=== PATIENT | female | born 1995 | race Caucasian/White ===

== ENCOUNTER 2016-07-25 20:40 | Inpatient (IN) | payer MEDICAID, OTHER ==
[~2016-07-25] VITALS: Ht 167.6 cm; Wt 64.0 kg
[~2016-07-25 20:40] MED LIST: IBUP-232 PO
[2016-07-25 20:42] VITALS: BP 110/73; PULSE 122; RESP 16; TEMP 97.6; O2SAT 99
[2016-07-25 21:40] VITALS: BP 116/59; PULSE 102; RESP 16; O2SAT 99
[2016-07-25 22:10] VITALS: RESP 16; O2SAT 99
[2016-07-25 22:17] LABS: AUTOMATED NEUTROPHIL # 25.8 TH/MM3 (1.8-7.7); BASOPHIL % 0.1 % (0.0-2.0); HEMATOCRIT 45.9 % (35.0-46.0); LYMPH % 3.4 % (9.0-44.0); MEAN CORPUSCULAR HEMOGLOBIN 29.3 PG (27.0-34.0); MEAN CORPUSCULAR HGB CONC 32.9 % (32.0-36.0); MONO % 3.8 % (0.0-8.0); NEUT % 92.7 % (16.0-70.0); PLATELET COUNT 216 TH/MM3 (150-450); RED BLOOD COUNT 5.16 MIL/MM3 (4.00-5.30); RED CELL DISTRIBUTION WIDTH 14.1 % (11.6-17.2); WHITE BLOOD COUNT 27.8 TH/MM3 (4.0-11.0)
[2016-07-25 22:24] LABS: BACTERIA, URINE OCC /hpf; BLOOD, URINE TRACE (NEG); COMMENT (UR) CULTURE INDICATED; CULTURE IF INDICATED CULTURE INDICATED; GLUCOSE,URINE NEG (NEG); HEMO FLAGS AUTO DIFF; KETONE, URINE NEG (NEG); MUCUS URINE MANY /lpf (OCC); NITRITE,URINE NEG (NEG); SQUAMOUS EPITHELIAL CELL URINE 4 /hpf (0-5); URINE COLOR YELLOW (YELLW/STRAW)
[2016-07-25 22:43] LABS: ALT (GPT) 49 U/L (9-42); ANION GAP 10 MEQ/L (5-15); AST (GOT) 19 U/L (16-38); BICARBONATE 29.3 MEQ/L (21.0-32.0); BLOOD UREA NITROGEN 17 MG/DL (7-18); CHLORIDE 98 MEQ/L (98-107); GLOMERULAR FILTRATION RATE 47 ML/MIN (>89); POTASSIUM 3.8 MEQ/L (3.5-5.1); SODIUM (NA) 137 MEQ/L (136-145)
[2016-07-25 22:45] LABS: ALKALINE PHOSPHATASE 89 U/L (45-117)
[2016-07-25 22:50] LABS: BANDS 8 % (0-6); NEUTROPHIL # MANUAL DIFF 25.6 TH/MM3 (1.8-7.7); POLYS (SEG NEUTROPHILS) 84 % (16-70); WBC DIFF SAMPLE 100
[2016-07-25 22:51] LABS: PLATELET ESTIMATE SMEAR NORMAL (NORMAL); PLATELET MORPHOLOGY NORMAL (NORMAL); SCAN/DIFF FINAL DIFF MANUAL
--- NOTE | 2016-07-25 22:54 | PD ---
HPI Chief Complaint: Abdominal Pain Time Seen by Provider: 22:26 Travel History International Travel<30 days: No Contact w/Intl Traveler<30days: No Traveled to known affect area: No History of Present Illness HPI 21-year-old female complains of abdominal pain. Patient states that the pain started yesterday. Patient states the pain being constant pain cramping pain and sharp pain diffuse over the abdomen. Patient states the pain is worse over the lower abdomen. Patient states that the pains has been intermittent. Patient denies any nausea vomiting diarrhea. Patient denies any dysuria or frequency. Patient denies any vaginal discharge or bleeding. Patient denies any back pain. Patient denies any fever chills. On a scale of 1-10 the pain is an 8. PFSH Past Medical History Autoimmune Disease: No Weight (Kg): 3 Cancer: No Cardiovascular Problems: No Developmental Delay: No Diabetes: No Diminished Hearing: No Genitourinary: No Headaches: No Musculoskeletal: No Psychiatric: Yes Reproductive: No Integumentary: Yes (HX OF [facility] FOR 3 DAYS IN MAY 2009) Immunizations Current: Yes Migraines: No Seizures: No Thyroid Disease: No Ulcer: No ?: Unknown LMP: 07/17/16 : 0 Past Surgical History Appendectomy: No Section: No Cholecystectomy: No Other Surgery: Yes (drained staph infection--plastic surg for dog bite) Social History Alcohol Use: Yes Tobacco Use: No Substance Use: No Allergies-Medications (Allergen,Severity, Reaction): Coded Allergies: No Known Allergies (Verified , 07/25/16) Reported Meds & Prescriptions Reported Meds & Active Scripts Active No Active Prescriptions or Reported Medications Review of Systems General / Constitutional: No: Fever Eyes: No: Visual changes HENT: No: Headaches Cardiovascular: No: Chest Pain or Discomfort Respiratory: No: Shortness of Breath Gastrointestinal: Positive: Abdominal Pain Genitourinary: No: Dysuria Musculoskeletal: No: Pain Skin: No Rash Neurologic: No: Weakness Psychiatric: No: Depression Endocrine: No: Polydipsia Hematologic/Lymphatic: No: Easy Bruising Physical Exam Narrative GENERAL: Well-nourished, well-developed patient. SKIN: Focused skin assessment warm/dry. HEAD: Normocephalic. EYES: No scleral icterus. No injection or drainage. NECK: Supple, trachea midline. No JVD or lymphadenopathy. CARDIOVASCULAR: Regular rate and rhythm without murmurs, gallops, or rubs. RESPIRATORY: Breath sounds equal bilaterally. No accessory muscle use. GASTROINTESTINAL: Abdomen soft, nondistended. Patient has moderate tenderness on palpation abdomen especially lower abdomen, no rebound tenderness. Patient has guarding. No mass. MUSCULOSKELETAL: No cyanosis, or edema. BACK: Nontender without obvious deformity. No CVA tenderness. INTERFACE DESIGNER exam: Patient has small amount of yellowish greenish discharge in the vaginal vault. Positive cervical motion tenderness. Uterus is nonenlarged with moderate tenderness on palpation. No adnexal masses tenderness. Data Data Last Documented VS Vital Signs Date Time Temp Pulse Resp B/P Pulse Ox O2 Delivery O2 Flow Rate FiO2 07/25/16 22:10 16 99 Room Air 07/25/16 21:40 102 116/59 07/25/16 20:42 97.6 Orders Complete Blood Count With Diff (07/25/16 21:47) Comprehensive Metabolic Panel (07/25/16 21:47) Urinalysis - C+S If Indicated (07/25/16 21:47) Ed Urine Pregnancytest Poc (07/25/16 21:47) Iv Access Insert/Monitor (07/25/16 21:47) Oxygen Administration (07/25/16 21:47) Oximetry (07/25/16 21:47) Lipase (07/25/16 21:47) Urine Culture (07/25/16 22:04) Gc And Chlamydia Pcr (07/25/16 22:36) Wet Prep Profile (07/25/16 22:36) Ct Abd/Pel W Iv Contrast(Rout) (07/25/16 22:36) Sodium Chlor 0.9% 1000 Ml Inj (Ns 1000 M (07/25/16 23:00) Ceftriaxone Inj (Rocephin Inj) (07/25/16 23:00) Iohexol 350 Inj (Omnipaque 350 Inj) (07/26/16 00:48) Labs Laboratory Tests Test 07/25/16 07/25/16 22:04 22:50 White Blood Count 27.8 TH/MM3 Red Blood Count 5.16 MIL/MM3 Hemoglobin 15.1 GM/DL Hematocrit 45.9 % Mean Corpuscular Volume 89.0 FL Mean Corpuscular Hemoglobin 29.3 PG Mean Corpuscular Hemoglobin 32.9 % Concent Red Cell Distribution Width 14.1 % Platelet Count 216 TH/MM3 Mean Platelet Volume 8.0 FL Neutrophils (%) (Auto) 92.7 % Lymphocytes (%) (Auto) 3.4 % Monocytes (%) (Auto) 3.8 % Eosinophils (%) (Auto) 0.0 % Basophils (%) (Auto) 0.1 % Neutrophils # (Auto) 25.8 TH/MM3 Lymphocytes # (Auto) 1.0 TH/MM3 Monocytes # (Auto) 1.1 TH/MM3 Eosinophils # (Auto) 0.0 TH/MM3 Basophils # (Auto) 0.0 TH/MM3 CBC Comment AUTO DIFF Differential Total Cells 100 Counted Neutrophils % (Manual) 84 % Band Neutrophils % 8 % Lymphocytes % 7 % Monocytes % 1 % Neutrophils # (Manual) 25.6 TH/MM3 Differential Comment FINAL DIFF MANUAL Platelet Estimate NORMAL Platelet Morphology Comment NORMAL Red Cell Morphology Comment NORMAL Urine Color YELLOW Urine Turbidity HAZY Urine pH 6.0 Urine Specific [place] 1.017 Urine Protein 100 mg/dL Urine Glucose (UA) NEG mg/dL Urine Ketones NEG mg/dL Urine Occult Blood TRACE Urine Nitrite NEG Urine Bilirubin NEG Urine Urobilinogen LESS THAN 2.0 MG/DL Urine Leukocyte Esterase MOD Urine RBC 1 /hpf Urine WBC 19 /hpf Urine Squamous Epithelial 4 /hpf Cells Urine Bacteria OCC /hpf Urine Mucus MANY /lpf Microscopic Urinalysis Comment CULTURE INDICATED Sodium Level 137 MEQ/L Potassium Level 3.8 MEQ/L Chloride Level 98 MEQ/L Carbon Dioxide Level 29.3 MEQ/L Anion Gap 10 MEQ/L Blood Urea Nitrogen 17 MG/DL Creatinine 1.43 MG/DL Estimat Glomerular Filtration 47 ML/MIN Rate Random Glucose 101 MG/DL Calcium Level 9.2 MG/DL Total Bilirubin 1.0 MG/DL Aspartate Amino Transf 19 U/L (AST/SGOT) Alanine Aminotransferase 49 U/L (ALT/SGPT) Alkaline Phosphatase 89 U/L Total Protein 8.6 GM/DL Albumin 3.8 GM/DL Lipase 56 U/L Clue Cells (Wet Prep) PRESENT Vaginal Trichomonas (Wet Prep) NONE SEEN Vaginal Yeast (Wet Prep) NONE SEEN MDM Medical Decision Making Medical Screen Exam Complete: Yes Emergency Medical Condition: Yes Interpretation(s) 12:55 AM. CBC WBC 27.8. 84 neutrophil. 8 bands. Creatinine 1.43. Wet prep positive for clue cells. Differential Diagnosis Differential diagnosis including gastritis, PUD, pancreatitis, cholecystitis, colitis, UTI, pyelonephritis, nephrolithiasis, appendicitis, PID, cervicitis. Narrative Course 21-year-old female with abdominal pain. Normal saline solution 1 25 cc an hour. Rocephin 1 g IV. Scripts No Active Prescriptions or Reported Meds Campos Fregoso MD Jul 25, 2016 22:54
[2016-07-25] MEDS ORDERED: cefTRIAXone INJ 1,000 MG in SODIUM CHLORIDE 0.9% INJ 100 ML IV ONE (23:00)
[2016-07-25] MEDS ORDERED: SODIUM CHLOR 0.9% 1000 ML INJ 1,000 ML IV SCH (23:00)
[2016-07-26] MEDS ORDERED: IOHEXOL 350 MG/ML 10 ML VIAL (for RAD DIAG) IV ONE (00:48)
--- NOTE | 2016-07-26 01:33 | RADRPT ---
EXAM DATE/TIME: 07/26/2016 00:44 [facility] COMPARISON: No previous studies available for comparison. INDICATIONS : Abdominal pain with nausea. IV CONTRAST: 80 cc Omnipaque 350 (iohexol) IV ORAL CONTRAST: No oral contrast ingested. RADIATION DOSE: 9.96 CTDIvol (mGy) MEDICAL HISTORY : None SURGICAL HISTORY : None. ENCOUNTER: Initial ACUITY: 1 day PAIN SCALE: 7/10 LOCATION: abdomen TECHNIQUE: Volumetric scanning of the abdomen and pelvis was performed. Using automated exposure control and ad justment of the mA and/or kV according to patient size, radiation dose was kept as low as reasonably achievable to obtain optimal diagnostic quality images. FINDINGS: Examination of the lung bases demonstrates no abnormality. No pleural fluid is identified. No pulmona ry nodules are present. The liver and spleen are normal in size and no focal defects are identified. There is gallbladder wall thickening with a small air-containing stone. The pancreas demonstrates no evidence of mass and there is no dilatation of the pancreatic duct. There is small bowel dilatation i n a diffuse fashion to the terminal ileum with enhancement of the wall which may reflect enteritis. T his also involves the right colon. No free fluid is identified. No abnormally enlarged lymph nodes ar e identified. Examination of the pelvis demonstrates no evidence of free fluid or pelvic mass. No abnormally enlarg ed inguinal or retroperitoneal lymph nodes are present. The bladder is unremarkable. CONCLUSION: Cholelithiasis with mild gallbladder wall thickening Mild small bowel dilatation in a diffuse fashion which may reflect infectious enteritis. Curt Valle MD on July 26, 2016 at 1:27 Board Certified Radiologist. This report was verified electronically.
[2016-07-26 02:08] LABS: CHLAMYDIA PCR NOT DETECTED (NOT DETECT); NEISSERIA PCR DETECTED (NOT DETECT)
[2016-07-26] MEDS: SODIUM CHLOR 0.9% 1000 ML INJ 1,000 ML IV SCH ×3 (02:08→23:11)
--- NOTE | 2016-07-26 02:13 | PD ---
Physical Exam Date Seen by Provider: Jul 26, 2016 Time Seen by Provider: 02:09 Narrative GENERAL: This is a well-nourished, well-developed patient, in no apparent distress. SKIN: No rashes, ecchymoses or lesions. Warm and dry. HEAD: Atraumatic. Normocephalic. EYES: PERRL, EOMI, no discharge or injection. No scleral icterus. EARS: Clear NOSE: Nasal turbinates appear normal. THROAT: Mucosa pink and moist. Airway patent. NECK: Trachea midline. supple, moves head freely. LUNGS: Clear to auscultation. CV: Regular in rhythm. ABDOMEN: Soft, diffusely tender. Mild guarding but no rebound. No Gaines sign. EXT: No clubbing cyanosis or edema. Data Data Last Documented VS Vital Signs Date Time Temp Pulse Resp B/P Pulse Ox O2 Delivery O2 Flow Rate FiO2 07/25/16 22:10 16 99 Room Air 07/25/16 21:40 102 116/59 07/25/16 20:42 97.6 Orders Complete Blood Count With Diff (07/25/16 21:47) Comprehensive Metabolic Panel (07/25/16 21:47) Urinalysis - C+S If Indicated (07/25/16 21:47) Ed Urine Pregnancytest Poc (07/25/16 21:47) Iv Access Insert/Monitor (07/25/16 21:47) Oxygen Administration (07/25/16 21:47) Oximetry (07/25/16 21:47) Lipase (07/25/16 21:47) Urine Culture (07/25/16 22:04) Gc And Chlamydia Pcr (07/25/16 22:36) Wet Prep Profile (07/25/16 22:36) Ct Abd/Pel W Iv Contrast(Rout) (07/25/16 22:36) Sodium Chlor 0.9% 1000 Ml Inj (Ns 1000 M (07/25/16 23:00) Ceftriaxone Inj (Rocephin Inj) (07/25/16 23:00) Iohexol 350 Inj (Omnipaque 350 Inj) (07/26/16 00:48) Piperacil-Tazo 4.5 Gm Premix (Zosyn 4.5 (07/26/16 02:15) Admit Order (Ed Use Only) (07/26/16 02:08) Labs Laboratory Tests Test 07/25/16 07/25/16 22:04 22:50 White Blood Count 27.8 TH/MM3 Red Blood Count 5.16 MIL/MM3 Hemoglobin 15.1 GM/DL Hematocrit 45.9 % Mean Corpuscular Volume 89.0 FL Mean Corpuscular Hemoglobin 29.3 PG Mean Corpuscular Hemoglobin 32.9 % Concent Red Cell Distribution Width 14.1 % Platelet Count 216 TH/MM3 Mean Platelet Volume 8.0 FL Neutrophils (%) (Auto) 92.7 % Lymphocytes (%) (Auto) 3.4 % Monocytes (%) (Auto) 3.8 % Eosinophils (%) (Auto) 0.0 % Basophils (%) (Auto) 0.1 % Neutrophils # (Auto) 25.8 TH/MM3 Lymphocytes # (Auto) 1.0 TH/MM3 Monocytes # (Auto) 1.1 TH/MM3 Eosinophils # (Auto) 0.0 TH/MM3 Basophils # (Auto) 0.0 TH/MM3 CBC Comment AUTO DIFF Differential Total Cells 100 Counted Neutrophils % (Manual) 84 % Band Neutrophils % 8 % Lymphocytes % 7 % Monocytes % 1 % Neutrophils # (Manual) 25.6 TH/MM3 Differential Comment FINAL DIFF MANUAL Platelet Estimate NORMAL Platelet Morphology Comment NORMAL Red Cell Morphology Comment NORMAL Urine Color YELLOW Urine Turbidity HAZY Urine pH 6.0 Urine Specific [place] 1.017 Urine Protein 100 mg/dL Urine Glucose (UA) NEG mg/dL Urine Ketones NEG mg/dL Urine Occult Blood TRACE Urine Nitrite NEG Urine Bilirubin NEG Urine Urobilinogen LESS THAN 2.0 MG/DL Urine Leukocyte Esterase MOD Urine RBC 1 /hpf Urine WBC 19 /hpf Urine Squamous Epithelial 4 /hpf Cells Urine Bacteria OCC /hpf Urine Mucus MANY /lpf Microscopic Urinalysis Comment CULTURE INDICATED Sodium Level 137 MEQ/L Potassium Level 3.8 MEQ/L Chloride Level 98 MEQ/L Carbon Dioxide Level 29.3 MEQ/L Anion Gap 10 MEQ/L Blood Urea Nitrogen 17 MG/DL Creatinine 1.43 MG/DL Estimat Glomerular Filtration 47 ML/MIN Rate Random Glucose 101 MG/DL Calcium Level 9.2 MG/DL Total Bilirubin 1.0 MG/DL Aspartate Amino Transf 19 U/L (AST/SGOT) Alanine Aminotransferase 49 U/L (ALT/SGPT) Alkaline Phosphatase 89 U/L Total Protein 8.6 GM/DL Albumin 3.8 GM/DL Lipase 56 U/L Clue Cells (Wet Prep) PRESENT Vaginal Trichomonas (Wet Prep) NONE SEEN Vaginal Yeast (Wet Prep) NONE SEEN Chlamydia trachomatis DNA NOT DETECTED (PCR) Neisseria gonorrhoeae DNA DETECTED (PCR) [facility] Medical Record Reviewed: Yes Supervised Visit with OCTAVIO: Yes Interpretation(s) CBC & BMP Diagram 07/25/16 22:04 Last 24 hours Impressions Abdomen/Pelvis CT 07/25/16 [id number] Signed Impressions: Service Date/Time: Tuesday, July 26, 2016 00:44 - CONCLUSION: Cholelithiasis with mild gallbladder wall thickening Mild small bowel dilatation in a diffuse fashion which may reflect infectious enteritis. Curt Valle MD Differential Diagnosis Differential diagnoses: UTI, pyelonephritis, enteritis, cholelithiasis cholecystitis, PID Narrative Course IV access is obtained. Patient given a liter bolus of saline. She is initially given 1 g Rocephin by the earlier provider. We've added in 4.5 g of Zosyn IV. Patient's CAT scan shows diffuse inflammatory changes in the small bowel consistent with infectious enteritis. She also has thickening of the gallbladder an isolated stone but no evidence of acute cholecystitis. The case has been discussed with Dr. THOMPSON who has agreed to admit this patient. Diagnosis Primary Impression: Abdominal pain Qualified Code: R10.84 - Generalized abdominal pain Additional Impression: Enteritis Admitting Information Admitting Physician Requests: Observation Scripts No Active Prescriptions or Reported Meds Condition: Ronan Vizcarra Jul 26, 2016 02:13
[2016-07-26] MEDS ORDERED: PIPERACIL-TAZO 4.5 GM PREMIX 100 ML IV ONE (02:15)
[2016-07-26] MEDS ORDERED: NALOXONE HCL 0.4 MG/ML AMP IV PRN (02:15)
[2016-07-26] MEDS ORDERED: SODIUM CHLORIDE 0.9% FLUSH 10 ML FLUSH IV FLUSH PRN (02:15)
[2016-07-26 02:21] VITALS: BP 100/68; PULSE 81; RESP 16; O2SAT 97
[2016-07-26 03:45] VITALS: BP 96/54; PULSE 75; RESP 20; TEMP 97.7; O2SAT 98
[2016-07-26 08:17] VITALS: BP 110/64; PULSE 68; RESP 16; TEMP 98.2; O2SAT 100
[2016-07-26] MEDS: SODIUM CHLORIDE 0.9% FLUSH 10 ML FLUSH IV FLUSH SCH ×2 (09:00→20:57)
[2016-07-26] MEDS: PIPERACIL-TAZO 4.5 GM PREMIX 100 ML IV SCH ×3 (09:07→20:56)
[2016-07-26 11:53] VITALS: BP 102/64; PULSE 75; RESP 18; TEMP 98.8; O2SAT 98
[2016-07-26] MEDS: ACETAMINOPHEN 325 MG TAB PO PRN ×2 (13:24→21:20)
[2016-07-26] MEDS: metroNIDAZOLE 500 MG INJ 100 ML IV SCH ×2 (14:15→23:12)
[2016-07-26] MEDS: ONDANSETRON HCL 4 MG/2 ML VIAL IV PUSH PRN ×2 (14:15→21:21)
[2016-07-26 15:59] VITALS: BP 107/54; PULSE 79; RESP 18; TEMP 98.2; O2SAT 99
--- NOTE | 2016-07-26 16:16 | PD.CONS ---
HPI History of Present Illness This is a 21 year old [lady] who presented yesterday with abdominal pain and nausea and vomiting that started 2 days ago. The pain is on the left and right lower abdomen, sharp and it hurts when she twists from side to side. It comes and goes. She also is having diarrhea with fecal incontinence. The last time she vomited today she saw black material in it. NO fever, blood in stool, blood in emesis, black tarry stools. She recently had a staph infection for which she took antibiotics 2 months ago. Denies sick contacts, recent travel. Says she has hep C. (Sindi Ghosh) PFSH Past Medical History none Past Surgical History repair laceration (dog bite) face (Sindi Ghosh) Coded Allergies: No Known Allergies (Verified , 07/25/16) Family History unk Social History no ETOH no tobacco denies illicit drug use but says she prob got Hep C from needles (Sindi Ghosh) Review of Systems Constitutional: DENIES: Fever Eyes: DENIES: Blurred vision Ears, nose, mouth, throat: DENIES: Hearing loss Respiratory: DENIES: Cough Cardiovascular: DENIES: Chest pain Gastrointestinal: COMPLAINS OF: Abdominal pain, Diarrhea, Nausea, Vomiting, Hematemesis, DENIES: Black stools, Bloody stools, Constipation Genitourinary: DENIES: Dysuria Musculoskeletal: DENIES: Muscle aches Integumentary: DENIES: Jaundice Hematologic/lymphatic: DENIES: Bruising Neurologic: DENIES: Abnormal gait Psychiatric: DENIES: Confusion (Sindi Ghosh) GI Exam Vitals I&O Vital Signs Date Time Temp Pulse Resp B/P Pulse Ox O2 Delivery O2 Flow Rate FiO2 07/26/16 15:59 98.2 79 18 107/54 99 07/26/16 11:53 98.8 75 18 102/64 98 07/26/16 08:17 98.2 68 16 110/64 100 07/26/16 03:45 97.7 75 20 96/54 98 07/26/16 02:21 81 16 100/68 97 Room Air 07/25/16 22:10 16 99 Room Air 07/25/16 21:41 16 07/25/16 21:40 102 16 116/59 99 Room Air 07/25/16 20:42 97.6 122 16 110/73 99 Room Air I/O 07/25/16 07/25/16 07/25/16 07/26/16 07/26/16 07/26/16 07:00 15:00 23:00 07:00 15:00 23:00 Intake Total 300 ml Balance 300 ml Intake IV Total 300 ml # Voids 1 Imaging Last Impressions Abdomen/Pelvis CT 07/25/16 [id number] Signed Impressions: Service Date/Time: Tuesday, July 26, 2016 00:44 - CONCLUSION: Cholelithiasis with mild gallbladder wall thickening Mild small bowel dilatation in a diffuse fashion which may reflect infectious enteritis. Curt Valle MD Laboratory Test 07/25/16 07/25/16 22:04 22:50 White Blood Count 27.8 TH/MM3 Red Blood Count 5.16 MIL/MM3 Hemoglobin 15.1 GM/DL Hematocrit 45.9 % Mean Corpuscular Volume 89.0 FL Mean Corpuscular Hemoglobin 29.3 PG Mean Corpuscular Hemoglobin 32.9 % Concent Red Cell Distribution Width 14.1 % Platelet Count 216 TH/MM3 Mean Platelet Volume 8.0 FL Neutrophils (%) (Auto) 92.7 % Lymphocytes (%) (Auto) 3.4 % Monocytes (%) (Auto) 3.8 % Eosinophils (%) (Auto) 0.0 % Basophils (%) (Auto) 0.1 % Neutrophils # (Auto) 25.8 TH/MM3 Lymphocytes # (Auto) 1.0 TH/MM3 Monocytes # (Auto) 1.1 TH/MM3 Eosinophils # (Auto) 0.0 TH/MM3 Basophils # (Auto) 0.0 TH/MM3 CBC Comment AUTO DIFF Differential Total Cells 100 Counted Neutrophils % (Manual) 84 % Band Neutrophils % 8 % Lymphocytes % 7 % Monocytes % 1 % Neutrophils # (Manual) 25.6 TH/MM3 Differential Comment FINAL DIFF MANUAL Platelet Estimate NORMAL Platelet Morphology Comment NORMAL Red Cell Morphology Comment NORMAL Urine Color YELLOW Urine Turbidity HAZY Urine pH 6.0 Urine Specific [place] 1.017 Urine Protein 100 mg/dL Urine Glucose (UA) NEG mg/dL Urine Ketones NEG mg/dL Urine Occult Blood TRACE Urine Nitrite NEG Urine Bilirubin NEG Urine Urobilinogen LESS THAN 2.0 MG/DL Urine Leukocyte Esterase MOD Urine RBC 1 /hpf Urine WBC 19 /hpf Urine Squamous Epithelial 4 /hpf Cells Urine Bacteria OCC /hpf Urine Mucus MANY /lpf Microscopic Urinalysis Comment CULTURE INDICATED Sodium Level 137 MEQ/L Potassium Level 3.8 MEQ/L Chloride Level 98 MEQ/L Carbon Dioxide Level 29.3 MEQ/L Anion Gap 10 MEQ/L Blood Urea Nitrogen 17 MG/DL Creatinine 1.43 MG/DL Estimat Glomerular Filtration 47 ML/MIN Rate Random Glucose 101 MG/DL Calcium Level 9.2 MG/DL Total Bilirubin 1.0 MG/DL Aspartate Amino Transf 19 U/L (AST/SGOT) Alanine Aminotransferase 49 U/L (ALT/SGPT) Alkaline Phosphatase 89 U/L Total Protein 8.6 GM/DL Albumin 3.8 GM/DL Lipase 56 U/L Clue Cells (Wet Prep) PRESENT Vaginal Trichomonas (Wet Prep) NONE SEEN Vaginal Yeast (Wet Prep) NONE SEEN Chlamydia trachomatis DNA NOT DETECTED (PCR) Neisseria gonorrhoeae DNA DETECTED (PCR) Date/Time Procedure Status Source Growth 07/25/16 22:04 Urine Culture - Preliminary Resulted Urine Clean Catch No growth. Physical Examination HEENT: EOMI; normocephalic; atraumatic; no jaundice. facial piercing CHEST: CTA CARDIAC: RRR ABDOMEN: Soft, nondistended, diffuse moderate TTP; bowel sounds are present in all four quadrants. EXTREMITIES: No clubbing, cyanosis, or edema. SKIN: tattoos throughout; no rash; no jaundice. TRANSACTION MANAGER: No focal deficits; alert and oriented times three. (Sindi Ghosh) Assessment and Plan Plan ASSESSMENT - N/V, diarrhea, abd pain - c/o left and right lower abdomen and diffuse TTP, diarrhea with fecal incontinence. The last time she vomited today she saw black material in it. She took antibiotics [address] 07-26-16 --> Cholelithiasis with mild gallbladder wall thickening Mild small bowel dilatation in a diffuse fashion which may reflect infectious enteritis. - leukocytosis - Of note she is pos for clue cells, urine pos for leuk esterase , WBC, bacteria. On Flagyl. PLAN - stool cx - full liquids - continue flagyl - further recommendations to follow This pt seen by myself and Dr Minaya and this note is written on his behalf (Sindi Ghosh) Physician Comments Seen and examined, plan as above, will follow up with you for further recommendations . (Ijeoma Minaya MD) Sindi Ghosh Jul 26, 2016 16:16 Ijeoma Minaya MD Jul 27, 2016 06:50
[2016-07-26 19:13] LABS: AUTOMATED NEUTROPHIL # 16.7 TH/MM3 (1.8-7.7); BASOPHIL % 0.1 % (0.0-2.0); EOSINOPHIL # 0.1 TH/MM3 (0-0.4); EOSINOPHIL % 0.4 % (0.0-4.0); HEMATOCRIT 39.3 % (35.0-46.0); HEMO FLAGS DIFF FINAL; LYMPH % 10.1 % (9.0-44.0); MEAN CELL VOLUME 89.4 FL (80.0-100.0); MEAN CORPUSCULAR HGB CONC 32.4 % (32.0-36.0); MONO % 4.7 % (0.0-8.0); NEUT % 84.7 % (16.0-70.0); PLATELET COUNT 228 TH/MM3 (150-450); RED CELL DISTRIBUTION WIDTH 14.3 % (11.6-17.2); WHITE BLOOD COUNT 19.8 TH/MM3 (4.0-11.0)
[2016-07-26 19:44] VITALS: BP 98/57; PULSE 90; RESP 20; TEMP 98.2; O2SAT 100
[2016-07-26 19:50] LABS: ALKALINE PHOSPHATASE 78 U/L (45-117); ALT (GPT) 33 U/L (9-42); ANION GAP 6 MEQ/L (5-15); AST (GOT) 14 U/L (16-38); BICARBONATE 28.9 MEQ/L (21.0-32.0); BLOOD UREA NITROGEN 15 MG/DL (7-18); CHLORIDE 104 MEQ/L (98-107); GLOMERULAR FILTRATION RATE 80 ML/MIN (>89); POTASSIUM 3.4 MEQ/L (3.5-5.1); SODIUM (NA) 139 MEQ/L (136-145); TOTAL BILIRUBIN ADULT 0.4 MG/DL (0.2-1.0)
--- NOTE | 2016-07-26 23:50 | HHI.HP ---
[facility] No Primary Care Physician Admission Diagnosis abdominal pain, enteritis Diagnoses: Travel History International Travel<30 Days: No Contact w/Intl Traveler <30 Da: No Traveled to Known Affected Are: No History of Present Illness 21-year-old female with history of hepatitis C secondary to IV drug use Patient presented to ER with 2 day history of nonbloody but black-colored vomiting, intermittent, sharp bilateral lower quadrant pain, green diarrhea more than 4 times daily, as well as subjective fevers. Patient denies any chest pain or shortness of breath. She does report lightheadedness, feeling as if she will pass out upon standing, however has not done so. Patient denies any vaginal discharge, however pelvic exam was done in the ER, wet prep is positive for clue cells Review of Systems performed and negative except for HPI and past medical history. Past Family Social History Past Medical History history of staph abscess in groin 2010 history of IV drug use Past Surgical History repair laceration (dog bite) face staph abscess groin lanced in 2009. Reported Medications patient denies taking any medications. Allergies: Coded Allergies: No Known Allergies (Verified , 07/25/16) Family History Mother with skin cancers removed. Father healthy Social History no ETOH no tobacco denies illicit drug use but says she prob got Hep C from needles patient does report IV drug use with cocaine 1 weeks ago.she also reports occasional marijuana use Physical Exam Vital Signs Vital Signs Date Time Temp Pulse Resp B/P Pulse Ox O2 Delivery O2 Flow Rate FiO2 07/26/16 19:44 98.2 90 20 98/57 100 07/26/16 15:59 98.2 79 18 107/54 99 07/26/16 11:53 98.8 75 18 102/64 98 07/26/16 08:17 98.2 68 16 110/64 100 07/26/16 03:45 97.7 75 20 96/54 98 07/26/16 02:21 81 16 100/68 97 Room Air Physical Exam GENERAL: This is a well-nourished, well-developed patient, appears in moderate amount of pain.alert and oriented 3.patient examined with 2 nurses SKIN: No rashes, ecchymoses or lesions. Cool and dry. HEAD: Atraumatic. Normocephalic. No temporal or scalp tenderness. EYES: Pupils equal round and reactive. Extraocular motions intact. No scleral icterus. No injection or drainage. ENT: Nose without bleeding, purulent drainage or septal hematoma. Throat without erythema, tonsillar hypertrophy or exudate. Uvula midline. Airway patent. NECK: Trachea midline. No JVD or lymphadenopathy. Supple, nontender, no meningeal signs. CARDIOVASCULAR: Regular rate and rhythm without murmurs, gallops, or rubs. RESPIRATORY: Clear to auscultation. Breath sounds equal bilaterally. No wheezes , rales, or rhonchi. GASTROINTESTINAL: Abdomen soft, tender to moderate palpation bilateral lower quadrants.no rebound or guarding. MUSCULOSKELETAL: Extremities without clubbing, cyanosis, or edema. No joint tenderness, effusion, or edema noted. No calf tenderness. Negative Homans sign bilaterally. NEUROLOGICAL: Awake and alert. Cranial nerves II through XII intact. Motor and sensory grossly within normal limits. Five out of 5 muscle strength in all muscle groups. Normal speech. Laboratory Laboratory Tests Test 07/26/16 07/26/16 16:06 18:50 Nasal Screen MRSA (PCR) MRSA NOT DETECTED White Blood Count 19.8 Red Blood Count 4.40 Hemoglobin 12.7 Hematocrit 39.3 Mean Corpuscular Volume 89.4 Mean Corpuscular Hemoglobin 29.0 Mean Corpuscular Hemoglobin 32.4 Concent Red Cell Distribution Width 14.3 Platelet Count 228 Mean Platelet Volume 7.9 Neutrophils (%) (Auto) 84.7 Lymphocytes (%) (Auto) 10.1 Monocytes (%) (Auto) 4.7 Eosinophils (%) (Auto) 0.4 Basophils (%) (Auto) 0.1 Neutrophils # (Auto) 16.7 Lymphocytes # (Auto) 2.0 Monocytes # (Auto) 0.9 Eosinophils # (Auto) 0.1 Basophils # (Auto) 0.0 CBC Comment DIFF FINAL Differential Comment Sodium Level 139 Potassium Level 3.4 Chloride Level 104 Carbon Dioxide Level 28.9 Anion Gap 6 Blood Urea Nitrogen 15 Creatinine 0.90 Estimat Glomerular Filtration 80 Rate Random Glucose 100 Lactic Acid Level 0.8 Calcium Level 8.9 Total Bilirubin 0.4 Aspartate Amino Transf 14 (AST/SGOT) Alanine Aminotransferase 33 (ALT/SGPT) Alkaline Phosphatase 78 Total Protein 7.2 Albumin 2.9 Date/Time Procedure Status Source Growth 07/25/16 22:04 Urine Culture - Preliminary Resulted Urine Clean Catch No growth. Result Diagram: 07/26/16184907/26/161849 Assessment and Plan Assessment and Plan Patient presented to ER with 2 day history of nonbloody vomiting, intermittent, sharp bilateral lower quadrant pain, as well as subjective fevers. //Severe sepsis. SIRS criteria with acute kidney injury. CT with Possible cholecystitis, gastroenteritis. Possible UTI. follow-up cultures. Continue antibiotics. //Acute gastroenteritis. //Possible cholecystitis CT reviewed. gastroenterology following. Appreciate assistance. Continue antibiotics. //Acute kidney injury. secondary to nausea, vomiting, diarrhea, sepsis.Improved with fluids. //Bacterial vaginosis. Wet prep with clue cells. Started on metronidazole. //Marijuana use. //History of IV drug use. Most recently cocaine 1 week ago. -Cessation counseling provided. Advised complete discontinuation //Prophylaxis. Patient is ambulatory. Code Status full code. Discussed Condition With patient, nurse. Physician Certification 2 Midnight Certification Type: Admission for Inpatient Services Order for Inpatient Services The services are ordered in accordance with Medicare regulations or non- Medicare payer requirements, as applicable. In the case of services not specified as inpatient-only, they are appropriately provided as inpatient services in accordance with the 2-midnight benchmark. Estimated LOS (days): 2 days is the estimated time the patient will need to remain in the hospital, assuming treatment plan goals are met and no additional complications. Post-Hospital Plan: Home Juan Mehta MD Jul 26, 2016 23:50
[2016-07-27] VITALS (7 sets, daily range): BP systolic 101–110; BP diastolic 56–73; PULSE 52–70; RESP 16–20; TEMP 96–98.2; O2SAT 97–100
[2016-07-27] MEDS: PIPERACIL-TAZO 4.5 GM PREMIX 100 ML IV SCH ×4 (02:31→19:39)
[2016-07-27] MEDS: ACETAMINOPHEN 325 MG TAB PO PRN ×2 (03:22→12:51)
[2016-07-27] MEDS: ONDANSETRON HCL 4 MG/2 ML VIAL IV PUSH PRN ×3 (03:24→21:24)
[2016-07-27 04:50] LABS: C. DIFF EPI 027 PRESUMPTIVE NEGATIVE (NEGATIVE); C. DIFF TOXIN PCR NEGATIVE (NEGATIVE)
[2016-07-27] MEDS: metroNIDAZOLE 500 MG INJ 100 ML IV SCH ×3 (05:37→19:40)
[2016-07-27 07:30] LABS: AUTOMATED NEUTROPHIL # 10.7 TH/MM3 (1.8-7.7); BASOPHIL % 0.2 % (0.0-2.0); EOSINOPHIL # 0.1 TH/MM3 (0-0.4); EOSINOPHIL % 0.7 % (0.0-4.0); HEMO FLAGS DIFF FINAL; LYMPH % 13.2 % (9.0-44.0); LYMPHOCYTE # 1.8 TH/MM3 (1.0-4.8); MEAN CELL VOLUME 88.3 FL (80.0-100.0); MEAN CORPUSCULAR HEMOGLOBIN 29.9 PG (27.0-34.0); MEAN CORPUSCULAR HGB CONC 33.9 % (32.0-36.0); NEUT % 79.9 % (16.0-70.0); PLATELET COUNT 227 TH/MM3 (150-450); RED BLOOD COUNT 4.08 MIL/MM3 (4.00-5.30); WHITE BLOOD COUNT 13.4 TH/MM3 (4.0-11.0)
[2016-07-27 07:49] LABS: BICARBONATE 25.6 MEQ/L (21.0-32.0); POTASSIUM 3.5 MEQ/L (3.5-5.1)
--- NOTE | 2016-07-27 07:58 | HHI.PR ---
Subjective Remarks Patient stating that her level of pain decreased significantly. She had diarrhea earlier this morning. Thus far, she has tolerated popsicle. Objective Vitals Vital Signs Date Time Temp Pulse Resp B/P Pulse Ox O2 Delivery O2 Flow Rate FiO2 07/27/16 07:27 98.2 59 16 109/58 98 07/27/16 05:04 97.8 58 20 106/64 98 07/27/16 00:25 98.0 58 20 105/56 97 07/26/16 19:44 98.2 90 20 98/57 100 07/26/16 15:59 98.2 79 18 107/54 99 07/26/16 11:53 98.8 75 18 102/64 98 07/26/16 08:17 98.2 68 16 110/64 100 I/O 07/26/16 07/26/16 07/26/16 07/27/16 07/27/16 07/27/16 07:00 15:00 23:00 07:00 15:00 23:00 Intake Total 300 ml Balance 300 ml Intake IV Total 300 ml # Voids 1 Result Diagram: 07/27/16 0700 07/26/16 1850 Objective Remarks GENERAL: This is a well-nourished, well-developed patient, sleeping through much of exam oriented 3. SKIN: No rashes, ecchymoses or lesions. Cool and dry. Tattoos over extremities and torso. HEAD: Atraumatic. Normocephalic. No temporal or scalp tenderness. EYES: Pupils equal round and reactive. Extraocular motions intact. No scleral icterus. No injection or drainage. ENT: Nose without bleeding, purulent drainage or septal hematoma. Airway patent. NECK: Trachea midline. No JVD or lymphadenopathy. Supple, nontender, no meningeal signs. CARDIOVASCULAR: Regular rate and rhythm without murmurs, gallops, or rubs. RESPIRATORY: Clear to auscultation. Breath sounds equal bilaterally. No wheezes , rales, or rhonchi. GASTROINTESTINAL: Abdomen soft, mild tender to moderate palpation bilateral lower quadrants. MUSCULOSKELETAL: Extremities without clubbing, cyanosis, or edema. NEUROLOGICAL: Awake and alert. Cranial nerves II through XII intact. Motor and sensory grossly within normal limits. Five out of 5 muscle strength in all muscle groups. Normal speech. Urinary Catheter: No Vascular Central Line Catheter: No A/P Problem List: (1) Abdominal pain ICD Code: R10.9 Status: Acute (2) Sepsis ICD Code: A41.9 Status: Resolved (3) BV (bacterial vaginosis) ICD Code: N76.0 Status: Acute (4) ALBERTO (acute kidney injury) ICD Code: N17.9 Status: Resolved (5) Illicit drug use ICD Code: F19.90 Status: Acute Assessment and Plan 21 yo F with abd pain, admitted for possible cholecystitis, likely gastroenteritis, having symptom improvement. Severe sepsis. SIRS criteria with acute kidney injury. Renal fn now at baseline , sepsis resolved. Leukocytosis improving. Possible cholecystitis, gastroenteritis. UCx negative. Stool Cx pending. C diff negative. Continue Zosyn. Acute gastroenteritis. Possible cholecystitis vs enteritis CT reviewed, showing cholelithiasis with mild gallbladder wall thickening, mild small bowel dilation in a diffuse fashion. Pain improving. GI following. Appreciate assistance. Continue Zosyn -GI planning to have patient complete EGD/Colonoscopy on Friday Acute kidney injury. Resolved Bacterial vaginosis. Wet prep with clue cells. Started on Metronidazole, will need to complete 7 day course. GC/Chlam negative. Marijuana use. History of IV drug use. Most recently left 1 week ago. -Cessation counseling provided. Advised complete discontinuation Prophylaxis. Patient is ambulatory. Diet: Liquids DC planning: Possible home later today if tolerating diet Problem Qualifiers (1) Abdominal pain: Qualified Code: R10.84 - Generalized abdominal pain Jessika Claudio MD Jul 27, 2016 07:58
[2016-07-27] MEDS: SODIUM CHLOR 0.9% 1000 ML INJ 1,000 ML IV SCH ×3 (08:30→19:40)
[2016-07-27] MEDS: SODIUM CHLORIDE 0.9% FLUSH 10 ML FLUSH IV FLUSH SCH ×2 (08:30→19:40)
[2016-07-27] MEDS ORDERED: MAGNESIUM CITRATE SOLN 300 ML BTL PO ONE ×2 (12:00→18:00)
--- NOTE | 2016-07-27 12:52 | HHI.GIFU ---
Subjective Remarks Patient is sleeping, barely keeping her eyes open to talk to me, still with abd pain, not eating due to fear of N/V, cont. to have diarrhea (Petra Andraderojelioradha CAMARILLO) Objective Vitals I&O Vital Signs Date Time Temp Pulse Resp B/P Pulse Ox O2 Delivery O2 Flow Rate FiO2 07/27/16 11:17 98.2 66 16 101/61 99 07/27/16 07:27 98.2 59 16 109/58 98 07/27/16 05:04 97.8 58 20 106/64 98 07/27/16 00:25 98.0 58 20 105/56 97 07/26/16 19:44 98.2 90 20 98/57 100 07/26/16 15:59 98.2 79 18 107/54 99 I/O 07/26/16 07/26/16 07/26/16 07/27/16 07/27/16 07/27/16 07:00 15:00 23:00 07:00 15:00 23:00 Intake Total 300 ml Balance 300 ml Intake IV Total 300 ml # Voids 1 # Bowel Movements 1 Laboratory Laboratory Tests Test 07/26/16 07/26/16 07/27/16 07/27/16 16:06 18:50 03:15 07:00 Nasal Screen MRSA (PCR) MRSA NOT DETECTED White Blood Count 19.8 13.4 Red Blood Count 4.40 4.08 Hemoglobin 12.7 12.2 Hematocrit 39.3 36.0 Mean Corpuscular Volume 89.4 88.3 Mean Corpuscular Hemoglobin 29.0 29.9 Mean Corpuscular Hemoglobin 32.4 33.9 Concent Red Cell Distribution Width 14.3 14.0 Platelet Count 228 227 Mean Platelet Volume 7.9 8.1 Neutrophils (%) (Auto) 84.7 79.9 Lymphocytes (%) (Auto) 10.1 13.2 Monocytes (%) (Auto) 4.7 6.0 Eosinophils (%) (Auto) 0.4 0.7 Basophils (%) (Auto) 0.1 0.2 Neutrophils # (Auto) 16.7 10.7 Lymphocytes # (Auto) 2.0 1.8 Monocytes # (Auto) 0.9 0.8 Eosinophils # (Auto) 0.1 0.1 Basophils # (Auto) 0.0 0.0 CBC Comment DIFF FINAL DIFF FINAL Differential Comment Sodium Level 139 141 Potassium Level 3.4 3.5 Chloride Level 104 107 Carbon Dioxide Level 28.9 25.6 Anion Gap 6 8 Blood Urea Nitrogen 15 16 Creatinine 0.90 0.87 Estimat Glomerular Filtration 80 83 Rate Random Glucose 100 110 Lactic Acid Level 0.8 Calcium Level 8.9 8.4 Total Bilirubin 0.4 Aspartate Amino Transf 14 (AST/SGOT) Alanine Aminotransferase 33 (ALT/SGPT) Alkaline Phosphatase 78 Total Protein 7.2 Albumin 2.9 Stool C. difficile Toxin (PCR) NEGATIVE Stl C. difficile Toxin PRESUMPTIVE Epiderm 027 NEGATIVE Date/Time Procedure Status Source Growth 07/27/16 03:15 Cryptosporidium Exam Resulted Stool Stool Pending 07/27/16 03:15 Stool Pus (SHA) - Final Resulted Stool Stool NO WBC'S SEEN 07/27/16 03:15 Giardia Antigen (SHA) Resulted Stool Stool Pending 07/27/16 03:15 Received Stool Stool Pending 07/25/16 22:04 Urine Culture - Final Complete Urine Clean Catch 50-100,000 CFU/ML MIXED GRAM POSITIVE... Imaging Last Impressions Abdomen/Pelvis CT 07/25/166 Signed Impressions: Service Date/Time: Tuesday, July 26, 2016 00:44 - CONCLUSION: Cholelithiasis with mild gallbladder wall thickening Mild small bowel dilatation in a diffuse fashion which may reflect infectious enteritis. Curt Valle MD Physical Exam HEENT: normocephalic; atraumatic; no jaundice. NECK: Neck is supple, no JVD, no lymphadenopathy. CHEST: Chest is clear to auscultation and percussion. CARDIAC: Regular rate and rhythm with no murmur gallop or rubs. ABDOMEN: Soft, nondistended, diffused tenderness; no hepatosplenomegaly; bowel sounds are present in all four quadrants. EXTREMITIES: No clubbing, cyanosis, or edema. SKIN: Normal; no rash; no jaundice. DIRECTOR OF PSYCHIATRY: No focal deficits; alert and oriented times three. (Talat Andrade) Assessment and Plan Plan ASSESSMENT - Enteritis- no previous hx of this. N/V, diarrhea, abd pain, stools negative for C-diff CT 07-26-16 --> Cholelithiasis with mild gallbladder wall thickening Mild small bowel dilatation in a diffuse fashion which may reflect infectious enteritis. - leukocytosis - Of note she is pos for clue cells, urine pos for leuk esterase , WBC, bacteria. On Flagyl. - Hep-C- tx naive, due to IVDA, states she still uses on off, not a candidate for tx unless sober, this was discussed with patient PLAN - full liquids - continue flagyl, - Cont. Zosyn - Hep-C PCR - SBFT to r/o obstruction - EGD/colonoscopy on Friday - Obtain consents - Clear liquids tomorrow - Golytely tomorrow - NPO Friday night - further recommendations to follow This pt seen by myself and Dr Minaya and this note is written on his behalf (Talat Andrade) Physician Comments Seen and examined, plan as above, will follow up with you. (Ijeoma Minaya MD) Talat Andrade Jul 27, 2016 12:52 Ijeoma Minaya MD Jul 27, 2016 17:56
[2016-07-27] MEDS: BISACODYL EC 5 MG TABEC PO SCH ×2 (17:17→19:40)
[2016-07-28] VITALS: BP 110/68; PULSE 64; RESP 20; TEMP 97.7; O2SAT 99
[2016-07-28] MEDS: PIPERACIL-TAZO 4.5 GM PREMIX 100 ML IV SCH ×4 (02:24→20:23)
[2016-07-28 04:55] LABS: MEAN CELL VOLUME 89.3 FL (80.0-100.0); MEAN CORPUSCULAR HEMOGLOBIN 29.2 PG (27.0-34.0); MEAN CORPUSCULAR HGB CONC 32.7 % (32.0-36.0); PLATELET COUNT 237 TH/MM3 (150-450); RED BLOOD COUNT 4.25 MIL/MM3 (4.00-5.30); RED CELL DISTRIBUTION WIDTH 13.9 % (11.6-17.2); REVIEW FLAG FINAL; WHITE BLOOD COUNT 12.2 TH/MM3 (4.0-11.0)
[2016-07-28 05:07] LABS: ANION GAP 9 MEQ/L (5-15); BICARBONATE 27.5 MEQ/L (21.0-32.0); BLOOD UREA NITROGEN 13 MG/DL (7-18); CHLORIDE 107 MEQ/L (98-107); POTASSIUM 3.6 MEQ/L (3.5-5.1); SODIUM (NA) 143 MEQ/L (136-145)
[2016-07-28 05:11] LABS: ALKALINE PHOSPHATASE 67 U/L (45-117); ALT (GPT) 25 U/L (9-42); GLOMERULAR FILTRATION RATE 86 ML/MIN (>89); TOTAL BILIRUBIN ADULT 0.4 MG/DL (0.2-1.0)
[2016-07-28 05:24] LABS: AST (GOT) 12 U/L (16-38)
[2016-07-28] MEDS: metroNIDAZOLE 500 MG INJ 100 ML IV SCH ×3 (05:58→20:24)
[2016-07-28] MEDS: SODIUM CHLORIDE 0.9% FLUSH 10 ML FLUSH IV FLUSH SCH ×2 (07:28→20:23)
[2016-07-28 12:00] VITALS: BP 108/66; PULSE 50; RESP 16; TEMP 97.9; O2SAT 100
--- NOTE | 2016-07-28 13:01 | HHI.PR ---
Subjective Remarks Bowel series today. EGD and Colonoscopy tomorrow. Abdominal pain remains, but is improved compared to yesterday. No other complaints today. Objective Vital Signs Date Time Temp Pulse Resp B/P Pulse Ox O2 Delivery O2 Flow Rate FiO2 07/28/16 12:00 97.9 50 16 108/66 100 07/28/16 00:00 97.7 64 20 110/68 99 07/27/16 20:00 98.1 52 20 101/58 100 07/27/16 16:37 96.0 53 16 103/65 100 07/27/16 15:10 97.6 70 18 110/73 98 07/27/16 13:58 18 I/O 07/27/16 07/27/16 07/27/16 07/28/16 07/28/16 07/28/16 07:00 15:00 23:00 07:00 15:00 23:00 Intake Total 1265 ml 1205 ml Output Total 400 ml Balance 865 ml 1205 ml Intake Oral 480 ml 480 ml IV Total 785 ml 725 ml Emesis 400 ml # Voids 8 3 # Bowel Movements 2 7 Result Diagram: 07/28/16 0350 07/28/16 0350 Imaging Last Impressions Abdomen/Pelvis CT 07/25/16 [id number] Signed Impressions: Service Date/Time: Tuesday, July 26, 2016 00:44 - CONCLUSION: Cholelithiasis with mild gallbladder wall thickening Mild small bowel dilatation in a diffuse fashion which may reflect infectious enteritis. Curt Valle MD Objective Remarks GENERAL: NAD, A&Ox3 SKIN: Warm and dry. HEAD: Normocephalic. EYES: No scleral icterus. No injection or drainage. NECK: Supple, trachea midline. No JVD or lymphadenopathy. CARDIOVASCULAR: Regular rate and rhythm without murmurs, gallops, or rubs. RESPIRATORY: Breath sounds equal bilaterally. No accessory muscle use. GASTROINTESTINAL: Abdomen soft, non-tender, nondistended. MUSCULOSKELETAL: No cyanosis, or edema. BACK: Nontender without obvious deformity. No CVA tenderness. Medications and IVs Administered Medications Medications (Trade) Dose Ordered Sig/Radha Route PRN Reason Start Time Stop Time Status Last Admin Dose Admin Sodium Chloride (NS 1000 ml Inj) 1,000 ml @ 100 mls/hr Q10H IV 07/26/16 02:08 07/27/16 19:40 Sodium Chloride 2 ml 2 ml BID IV FLUSH 07/26/16 09:00 07/27/16 19:40 Piperacillin Sod/ Tazobactam Sod (Zosyn 4.5 Gm Premix) 100 ml @ 200 mls/hr Q6H IV 07/26/16 08:00 07/28/16 07:30 Acetaminophen 650 mg 650 mg Q4H PRN PO PAIN1-2,, FEVER 07/26/16 13:15 07/27/16 12:51 Metronidazole (Flagyl 500 Mg Inj) 100 ml @ 100 mls/hr Q8HR IV 07/26/16 14:00 07/28/16 05:58 Ondansetron HCl (Zofran Inj) 4 mg Q6HR PRN IV PUSH NAUSEA OR VOMITING 07/26/16 14:00 07/27/16 21:24 A/P Problem List: (1) ALBERTO (acute kidney injury) ICD Code: N17.9 (2) Abdominal pain ICD Code: R10.9 (3) Enteritis ICD Code: K52.9 Assessment and Plan Assessment and Plan 21 year old female. Admitted with signs of sepsis and enteritis. Possible IBD vs. infectious etiology. Sepsis Gastroenteritis Abdominal Pain Pain improving Hx of IV Drug Abuse increases risks of infectious etiology Her age increases risk for an onset of IBD IBD vs. Infectious No conclusive evidence of infectious cholecystitis or biliary obstruction. Resolved Zosyn continued Bowel series in process today EGD/Colonoscopy tomorrow C. Diff negative GC/Chlam negative and overall symptoms were not consistent with PID Acute kidney injury Dehydration related Resolved Bacterial vaginosis Metronidazole for 7 days, to be completed on 08/02/16. Marijuana Use History of IV drug use Most recently left 1 week ago. Cessation recommended Prophylaxis Patient is ambulatory. Problem Qualifiers (1) Abdominal pain: Qualified Code: R10.84 - Generalized abdominal pain Unruly Palomares MD Jul 28, 2016 13:01
--- NOTE | 2016-07-28 13:05 | HHI.GIFU ---
Subjective Remarks Less abdominal pain but otherwise asymptomatic. Objective Vitals I&O Vital Signs Date Time Temp Pulse Resp B/P Pulse Ox O2 Delivery O2 Flow Rate FiO2 07/28/16 12:00 97.9 50 16 108/66 100 07/28/16 00:00 97.7 64 20 110/68 99 07/27/16 20:00 98.1 52 20 101/58 100 07/27/16 16:37 96.0 53 16 103/65 100 07/27/16 15:10 97.6 70 18 110/73 98 07/27/16 13:58 18 I/O 07/27/16 07/27/16 07/27/16 07/28/16 07/28/16 07/28/16 07:00 15:00 23:00 07:00 15:00 23:00 Intake Total 1265 ml 1205 ml Output Total 400 ml Balance 865 ml 1205 ml Intake Oral 480 ml 480 ml IV Total 785 ml 725 ml Emesis 400 ml # Voids 8 3 # Bowel Movements 2 7 Laboratory Laboratory Tests Test 07/28/16 03:50 White Blood Count 12.2 Red Blood Count 4.25 Hemoglobin 12.4 Hematocrit 38.0 Mean Corpuscular Volume 89.3 Mean Corpuscular Hemoglobin 29.2 Mean Corpuscular Hemoglobin 32.7 Concent Red Cell Distribution Width 13.9 Platelet Count 237 Mean Platelet Volume 8.1 Sodium Level 143 Potassium Level 3.6 Chloride Level 107 Carbon Dioxide Level 27.5 Anion Gap 9 Blood Urea Nitrogen 13 Creatinine 0.84 Estimat Glomerular Filtration 86 Rate Random Glucose 86 Calcium Level 8.4 Total Bilirubin 0.4 Aspartate Amino Transf 12 (AST/SGOT) Alanine Aminotransferase 25 (ALT/SGPT) Alkaline Phosphatase 67 Total Protein 6.9 Albumin 2.9 Date/Time Procedure Status Source Growth 07/27/16 03:15 Cryptosporidium Exam Resulted Stool Stool Pending 07/27/16 03:15 Stool Pus (SHA) - Final Resulted Stool Stool NO WBC'S SEEN 07/27/16 03:15 Giardia Antigen (SHA) Resulted Stool Stool Pending 07/27/16 03:15 - Final Complete Stool Stool 07/25/16 22:04 Urine Culture - Final Complete Urine Clean Catch 50-100,000 CFU/ML MIXED GRAM POSITIVE... Physical Exam HEENT: normocephalic; atraumatic; no jaundice. NECK: Neck is supple, no JVD, no lymphadenopathy. CHEST: Chest is clear to auscultation and percussion. CARDIAC: Regular rate and rhythm with no murmur gallop or rubs. ABDOMEN: Soft, nondistended, diffused tenderness; no hepatosplenomegaly; bowel sounds are present in all four quadrants. EXTREMITIES: No clubbing, cyanosis, or edema. SKIN: Normal; no rash; no jaundice. STRUCTURAL STEEL ENGINEER: No focal deficits; alert and oriented times three. Assessment and Plan Plan ASSESSMENT - Enteritis- no previous hx of this. N/V, diarrhea, abd pain, stools negative for C-diff CT 07-26-16 --> Cholelithiasis with mild gallbladder wall thickening Mild small bowel dilatation in a diffuse fashion which may reflect infectious enteritis. - leukocytosis - Of note she is pos for clue cells, urine pos for leuk esterase , WBC, bacteria. On Flagyl. - Hep-C- tx naive, due to IVDA, states she still uses on off, not a candidate for tx unless sober, this was discussed with patient PLAN - full liquids - Continue flagyl, - Cont. Zosyn - Hep-C PCR - EGD/colonoscopy on Friday - Obtain consents - Clear liquids tomorrow - Golytely tomorrow - NPO after midnight - further recommendations to follow Ijeoma Minaya MD Jul 28, 2016 13:05
--- NOTE | 2016-07-28 13:32 | RADRPT ---
EXAM DATE/TIME: 07/28/2016 11:25 [place] COMPARISON: No previous studies available for comparison. INDICATIONS : Vomiting and diarrhea. FLUORO TIME: 0 minutes IMAGE COUNT: 9 CONTRAST: Entero Vu 24% Barium Sulfate (24% w/v, 20% w/w) IMAGING TIME(S): 15 min, 30 min, 45 min, 1 hr, 1.5 hrs, 4 hrs MEDICAL HISTORY : None. SURGICAL HISTORY : None. ENCOUNTER: Initial ACUITY: 2 days PAIN SCORE: 5/10 LOCATION: Bilateral abdomen FINDINGS: Preliminary film shows diffuse air-filled distention of the small bowel and mild diffuse air-filled d istention of the colon. The stomach is grossly unremarkable. Diffuse mild dilatation of the small bowel. No evidence of wall thickening or filling defect. Prolong ed small bowel transit time. Contrast is seen in the colon at 4 hours. CONCLUSION: Prolonged small bowel transit time, 4 hours. Diffusely mildly dilated small bowel but no evidence of obstruction. Nasir Martin MD on July 28, 2016 at 13:27 Board Certified Radiologist. This report was verified electronically.
[2016-07-28] MEDS: SODIUM CHLOR 0.9% 1000 ML INJ 1,000 ML IV SCH ×2 (14:27→20:24)
[2016-07-28] MEDS ORDERED: PEG (High)/E-LYTE SOLN 4000 ML BTL PO ONE (16:00)
[2016-07-28 17:05] VITALS: BP 97/57; PULSE 64; RESP 16; TEMP 98.8; O2SAT 99
[2016-07-28 18:46] VITALS: BP 97/57
[2016-07-28 20:00] VITALS: BP 103/60; PULSE 52; RESP 20; TEMP 98.9; O2SAT 98
[2016-07-29] VITALS (8 sets, daily range): BP systolic 101–106; BP diastolic 55–68; PULSE 54–69; RESP 16–18; TEMP 97–98.6; O2SAT 98–100
[2016-07-29] MEDS: PIPERACIL-TAZO 4.5 GM PREMIX 100 ML IV SCH ×4 (02:23→19:43)
[2016-07-29] MEDS ORDERED: LACTATED RINGER'S 1000 ML IV PRN (02:45)
[2016-07-29] MEDS: metroNIDAZOLE 500 MG INJ 100 ML IV SCH ×3 (05:39→19:44)
[2016-07-29] MEDS: SODIUM CHLORIDE 0.9% FLUSH 10 ML FLUSH IV FLUSH SCH ×2 (08:01→19:44)
[2016-07-29] MEDS: SODIUM CHLOR 0.9% 1000 ML INJ 1,000 ML IV SCH ×2 (08:01→19:43)
[2016-07-29] MEDS: ONDANSETRON HCL 4 MG/2 ML VIAL IV PUSH PRN (08:10)
[2016-07-29] MEDS: ACETAMINOPHEN 325 MG TAB PO PRN (08:10)
[2016-07-29] MEDS ORDERED: PROPOFOL 200 MG/20 ML AMP IV ONE (11:42)
--- NOTE | 2016-07-29 12:01 | GIPROC ---
[facility] [address] [facility]. [facility], [address] EGD PROCEDURE REPORT EXAM DATE: 07/29/2016 PATIENT NAME: Jaime Ramon MR #: [id number] BIRTHDATE: 1995 ATTENDING: Ijeoma Minaya MD ORDER #: [id number] FILM AND VIDEO GRAPHICS DESIGNER: Marcos Louis and Jerel Moncada STATUS: inpatient INDICATIONS: The patient is a 21 yr old female here for an EGD due to abdominal pain PROCEDURE PERFORMED: EGD, diagnostic MEDICATIONS: None and Per Anesthesia. TOPICAL ANESTHETIC: none CONSENT: The patient understands the risks and benefits of the procedure and understands that these risks include, but are not limited to: sedation, allergic reaction, infection, perforation and/or bleeding. Alternative means of evaluation and treatment include, among others: physical exam, x-rays, and/or surgical intervention. The patient elects to proceed with this endoscopic procedure. medical equipment was checked for proper function. Hand hygiene and appropriate measures for infection prevention was taken. After the risks, benefits and alternatives of the procedure were thoroughly explained, Informed consent was verified, confirmed and timeout was successfully executed by the treatment team. The patient was anesthetized with topical anesthesia and the [id number] (Pedi C) endoscope was introduced through the mouth and advanced to the second portion of the duodenum. Retroflexion was performed and was normal The gastroscope was then slowly withdrawn and removed. ESOPHAGUS: The esophagus was otherwise normal. STOMACH: The stomach otherwise appeared normal. DUODENUM: The duodenal mucosa appeared normal in the bulb and second portion of the duodenum. ADVERSE EVENTS: There were no complications. IMPRESSIONS: 1. The esophagus was otherwise normal 2. The stomach otherwise appeared normal 3. Normal duodenal mucosa in the bulb and second portion of the duodenum 4. Retroflexion was performed and was normal RECOMMENDATIONS: No treatment PATIENT CONDITION: stable DISPOSITION: Observation REPEAT EXAM: Return as needed for EGD Ijeoma Minaya MD eSigned: Ijeoma Minaya MD 07/29/2016 12:00 PM cc: PATIENT NAME: Jaime Ramon MR#: [id number]
--- NOTE | 2016-07-29 12:04 | GIPROC ---
[facility] [address] [facility]. [facility], [id number] COLONOSCOPY PROCEDURE REPORT EXAM DATE: 07/29/2016 PATIENT NAME: Jaime Ramon MR #: [id number] BIRTHDATE: 1995 ENDOSCOPIST: Ijeoma Minaya MD ORDER #: [id number] HARD TILE SETTER APPRENTICE: Marcos Louis and Jerel Moncada STATUS: inpatient INDICATIONS: The patient is a 21 yr old female here for a colonoscopy due to abdominal pain PROCEDURE PERFORMED: Colonoscopy, diagnostic MEDICATIONS: None and Per Anesthesia. PREP QUALITY: fair PREP TYPE:GoLytely ESTIMATED BLOOD LOSS: None CONSENT: The patient understands the risks and benefits of the procedure and understands that these risks include, but are not limited to: sedation, allergic reaction, infection, perforation and/or bleeding. Alternative means of evaluation and treatment include, among others: physical exam, x-rays, and/or surgical intervention. The patient elects to proceed with this endoscopic procedure. medical equipment was checked for proper function. Hand hygiene and appropriate measures for infection prevention was taken. After the risks, benefits and alternatives of the procedure were thoroughly explained, Informed consent was verified, confirmed and timeout was successfully executed by the treatment team. A digital exam was performed The Pentax [id number] endoscope was introduced through the anus and advanced to the cecum, which was identified by both the appendix and ileocecal valve. The instrument was then slowly withdrawn as the colon was fully examined. COLON FINDINGS: The colon mucosa was otherwise normal. The mucosa appeared normal and in the terminal ileum. Retroflexed views revealed no abnormalities The scope was then completely withdrawn from the patient and the procedure terminated. PROCEDURE WITHDRAWAL TIME:8minutes ADVERSE EVENTS: There were no complications. IMPRESSIONS: 1. The colon mucosa was otherwise normal 2. The mucosa appeared normal in the terminal ileum 3. Retroflexed views revealed no abnormalities RECOMMENDATIONS: No treatment RECALL: NONE Ijeoma Minaya MD eSigned: Ijeoma Minaya MD 07/29/2016 12:03 PM cc:
[2016-07-29] MEDS ORDERED: DO NOT ADM ANY ANTICOAGULANT DRUGS PRN (12:45)
--- NOTE | 2016-07-29 13:25 | HHI.PR ---
Subjective Remarks Patient seen this morning. EGD and colonoscopy planned for today. Bowel series showed slow transit. Objective Vital Signs Date Time Temp Pulse Resp B/P Pulse Ox O2 Delivery O2 Flow Rate FiO2 07/29/16 12:20 76 18 107/67 97 07/29/16 12:09 75 18 116/63 100 07/29/16 11:59 97.6 84 18 115/68 100 07/29/16 10:35 97.7 54 16 106/60 98 07/29/16 10:11 97.7 07/29/16 08:00 97.7 54 16 106/60 98 07/29/16 00:00 98.6 67 17 103/55 100 07/28/16 20:00 98.9 52 20 103/60 98 07/28/16 18:46 97/57 07/28/16 17:05 98.8 64 16 97/57 99 I/O 07/28/16 07/28/16 07/28/16 07/29/16 07/29/16 07/29/16 07:00 15:00 23:00 07:00 15:00 23:00 Intake Total 1205 ml 815 ml 1810 ml 775 ml 998 ml Output Total 600 ml Balance 1205 ml 815 ml 1210 ml 775 ml 998 ml Intake Oral 480 ml 1100 ml 0 ml IV Total 725 ml 815 ml 710 ml 775 ml 498 ml Other 500 ml Output Urine Total 600 ml # Voids 3 2 # Bowel Movements 4 Result Diagram: 07/28/16 0350 07/28/16 0350 Objective Remarks GENERAL: NAD, A&Ox3 SKIN: Warm and dry. HEAD: Normocephalic. EYES: No scleral icterus. No injection or drainage. NECK: Supple, trachea midline. No JVD or lymphadenopathy. CARDIOVASCULAR: Regular rate and rhythm without murmurs, gallops, or rubs. RESPIRATORY: Breath sounds equal bilaterally. No accessory muscle use. GASTROINTESTINAL: Abdomen soft, non-tender, nondistended. MUSCULOSKELETAL: No cyanosis, or edema. BACK: Nontender without obvious deformity. No CVA tenderness. A/P Problem List: (1) ALBERTO (acute kidney injury) ICD Code: N17.9 (2) Abdominal pain ICD Code: R10.9 (3) Enteritis ICD Code: K52.9 Assessment and Plan Assessment and Plan 21 year old female. Admitted with signs of sepsis and enteritis. Possible IBD vs. infectious etiology. EGD and colonoscopy today. Patient still has abdominal pain. Nausea present when seen this morning. Sepsis Gastroenteritis Abdominal Pain Pain improving Hx of IV Drug Abuse increases risks of infectious etiology Her age increases risk for an onset of IBD IBD vs. Infectious No conclusive evidence of infectious cholecystitis or biliary obstruction. Resolved Zosyn continued Bowel series in process today EGD/Colonoscopy tomorrow C. Diff negative GC/Chlam negative and overall symptoms were not consistent with PID Acute kidney injury Dehydration related Resolved Bacterial vaginosis Metronidazole for 7 days, to be completed on 08/02/16. Marijuana Use History of IV drug use Most recently left 1 week ago. Cessation recommended Prophylaxis Patient is ambulatory. Problem Qualifiers (1) Abdominal pain: Qualified Code: R10.84 - Generalized abdominal pain Unruly Palomares MD Jul 29, 2016 13:25
[2016-07-30] VITALS: BP 95/55; PULSE 73; RESP 16; TEMP 98.4; O2SAT 96
[2016-07-30] MEDS: PIPERACIL-TAZO 4.5 GM PREMIX 100 ML IV SCH ×2 (01:06→08:31)
[2016-07-30] MEDS: metroNIDAZOLE 500 MG INJ 100 ML IV SCH (05:17)
[2016-07-30] MEDS: SODIUM CHLOR 0.9% 1000 ML INJ 1,000 ML IV SCH (06:08)
[2016-07-30 08:00] VITALS: BP 110/63; PULSE 74; RESP 17; TEMP 97.5; O2SAT 100
[2016-07-30] MEDS: ACETAMINOPHEN 325 MG TAB PO PRN (08:33)
[2016-07-30] MEDS: SODIUM CHLORIDE 0.9% FLUSH 10 ML FLUSH IV FLUSH SCH (08:36)
[2016-07-30] MEDS ORDERED: METR-1 PO (10:31)
[2016-07-30] MEDS ORDERED: LACTTAB8 PO (10:31)
--- NOTE | 2016-07-30 10:34 | HHI.DS ---
Discharge Summary Admission Date Jul 26, 2016 at 2:10 am Discharge Date: Jul 30, 2016 Admitting Diagnosis abdominal pain, enteritis (1) Abdominal pain ICD Code: R10.9 (2) Sepsis ICD Code: A41.9 Diagnosis: Principal (3) BV (bacterial vaginosis) ICD Code: N76.0 Diagnosis: Secondary (4) ALBERTO (acute kidney injury) ICD Code: N17.9 Diagnosis: Principal (5) Illicit drug use ICD Code: F19.90 Diagnosis: Secondary Procedures EGD Colonoscopy Brief History - From Admission 21-year-old female with history of hepatitis C secondary to IV drug use Patient presented to ER with 2 day history of nonbloody but black-colored vomiting, intermittent, sharp bilateral lower quadrant pain, green diarrhea more than 4 times daily, as well as subjective fevers. Patient denies any chest pain or shortness of breath. She does report lightheadedness, feeling as if she will pass out upon standing, however has not done so. Patient denies any vaginal discharge, however pelvic exam was done in the ER, wet prep is positive for clue cells CBC/BMP: 07/28/16 0350 07/28/16 0350 Significant Findings Laboratory Tests Test 07/28/16 03:50 White Blood Count 12.2 TH/MM3 (4.0-11.0) Estimat Glomerular Filtration 86 ML/MIN (>89) Rate Calcium Level 8.4 MG/DL (8.5-10.1) Aspartate Amino Transf 12 U/L (16-38) (AST/SGOT) Albumin 2.9 GM/DL (3.4-5.0) PE at Discharge GENERAL: This is a well-nourished, well-developed patient, sleeping through much of exam oriented 3. SKIN: No rashes, ecchymoses or lesions. Cool and dry. Tattoos over extremities and torso. HEAD: Atraumatic. Normocephalic. No temporal or scalp tenderness. EYES: Pupils equal round and reactive. Extraocular motions intact. No scleral icterus. No injection or drainage. ENT: Nose without bleeding, purulent drainage or septal hematoma. Airway patent. NECK: Trachea midline. No JVD or lymphadenopathy. Supple, nontender, no meningeal signs. CARDIOVASCULAR: Regular rate and rhythm without murmurs, gallops, or rubs. RESPIRATORY: Clear to auscultation. Breath sounds equal bilaterally. No wheezes , rales, or rhonchi. GASTROINTESTINAL: Abdomen soft, mild tender to moderate palpation bilateral lower quadrants. MUSCULOSKELETAL: Extremities without clubbing, cyanosis, or edema. NEUROLOGICAL: Awake and alert. Cranial nerves II through XII intact. Motor and sensory grossly within normal limits. Five out of 5 muscle strength in all muscle groups. Normal speech. Hospital Course Mrs. newsome is a 21-year-old female who was admitted secondary to abdominal pain with symptoms of sepsis. A gastroenteritis was present. She also had evidence of cholecystitis. The cholecystitis did not manifest as an acute cholecystitis. No obstruction found on imaging. With Flagyl and Zosyn she has improved her time. She was evaluated for inflammatory bowel disease with an EGD and colonoscopy. All findings on this study are normal. A bowel follow- through study was performed and she had some delayed transit. The delayed transit would be consistent with enteritis. No positive STDs. Today she is doing better and tolerating by mouth intake. Abdominal pain has improved. She is medically stable for discharge. She'll discharged on Flagyl for 5 more days and a probiotic. Pt Condition on Discharge: Stable Discharge Disposition: Discharge Home Discharge Time: <= 30 minutes Discharge Instructions DIET: Follow Instructions for: As Tolerated, No Restrictions Activities you can perform: Regular-No Restrictions Follow up Referrals: PCP Follow-up - 2 Weeks New Medications: Lactobacillus Acidophilus (Lactobacillus Acidophilus) 1 Tab Tab 1 TAB PO TIDAC Nutritional Supplement #30 Ref 0 TAB Metronidazole (Flagyl) 500 Mg Tab 500 MG PO TID Infection #15 Ref 0 TAB Unruly Palomares MD Jul 30, 2016 10:34 am
[2016-07-31 23:54] LABS: HCV RNA PCR IU/ML 136000 IU/mL (()); HCV RNA PCR LOGIU/ML 5.13 (())
== END 2016-07-30 12:43 | disposition home or self-care (01) | DRG 872 ==
LOC: NEPD 20:40 → NEDA 07-26 02:10 → OBSVTOIN 07-26 02:10 → NEPHCDU 07-26 03:23 → N07B 07-27 14:12
PROVIDERS: ADMIT Hospitalist; ATTEND Hospitalist
PROC: 0DJD8ZZ Inspection of Lower Intestinal Tract, Via Natural or Artificial Opening Endoscopic (ICD-10-PCS; principal; 2016-07-29 10:45)
PROC: 0DJ08ZZ Inspection of Upper Intestinal Tract, Via Natural or Artificial Opening Endoscopic (ICD-10-PCS; 2016-07-30)
DX: A41.9 Sepsis, unspecified organism (principal); A09 Infectious gastroenteritis and colitis, unspecified; N17.9 Acute kidney failure, unspecified; K80.10 Calculus of gallbladder with chronic cholecystitis without obstruction; N76.0 Acute vaginitis; R65.20 Severe sepsis without septic shock; B19.20 Unspecified viral hepatitis C without hepatic coma; E86.0 Dehydration; F12.90 Cannabis use, unspecified, uncomplicated
CPT/HCPCS: 74177; 74250; 80048; 80053; 81001; 82948; 83605; 83690; 84703; 85007; 85025; 85027; 87086; 87205; 87210; 87328; 87329; 87491; 87493; 87506; 87522; 87591; 87641; 87902; 96374; J0696; J2405; J2543; J7030; J7120; Q9967

== ENCOUNTER 2016-08-28 14:17 | Emergency (ER) | payer MEDICAID, OTHER ==
[~2016-08-28] VITALS: Ht 162.6 cm; Wt 62.0 kg
[~2016-08-28 14:17] MED LIST changes: -IBUP-232 PO; +LACTTAB8 PO; +METR-1 PO
[2016-08-28 14:19] VITALS: BP 125/75; PULSE 102; RESP 20; TEMP 99.2; O2SAT 99
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
--- NOTE | 2016-08-28 17:39 | RADRPT ---
EXAM DATE/TIME: 08/28/2016 17:15 [facility] COMPARISON: No previous studies available for comparison. INDICATIONS : Shortness of breath. MEDICAL HISTORY : None. SURGICAL HISTORY : None. ENCOUNTER: Initial ACUITY: 3 days PAIN SCORE: 0/10 LOCATION: Bilateral chest FINDINGS: A single view of the chest demonstrates the lungs to be symmetrically aerated without evidence of mas s, infiltrate or effusion. The cardiomediastinal contours are unremarkable. Osseous structures are intact. CONCLUSION: Normal examination for a patient of this age. John Paul Pierce MD on August 28, 2016 at 17:37 Board Certified Radiologist. This report was verified electronically.
[2016-08-28 17:55] LABS: AUTOMATED NEUTROPHIL # 2.5 TH/MM3 (1.8-7.7); BASOPHIL % 0.6 % (0.0-2.0); HEMATOCRIT 44.5 % (35.0-46.0); HEMO FLAGS DIFF FINAL; LYMPH % 30.3 % (9.0-44.0); LYMPHOCYTE # 1.2 TH/MM3 (1.0-4.8); MEAN CELL VOLUME 88.7 FL (80.0-100.0); MEAN CORPUSCULAR HEMOGLOBIN 28.8 PG (27.0-34.0); MEAN CORPUSCULAR HGB CONC 32.5 % (32.0-36.0); MONO % 8.2 % (0.0-8.0); NEUT % 60.9 % (16.0-70.0); PLATELET COUNT 155 TH/MM3 (150-450); RED BLOOD COUNT 5.02 MIL/MM3 (4.00-5.30); RED CELL DISTRIBUTION WIDTH 14.6 % (11.6-17.2)
[2016-08-28 18:08] LABS: BLOOD, URINE NEG (NEG); GLUCOSE,URINE NEG (NEG); KETONE, URINE NEG (NEG); MUCUS URINE FEW /lpf (OCC); NITRITE,URINE NEG (NEG); SQUAMOUS EPITHELIAL CELL URINE 1 /hpf (0-5); URINE COLOR YELLOW (YELLW/STRAW)
[2016-08-28 18:09] LABS: COMMENT (UR) CATH-CULTURE IND; CULTURE IF INDICATED CATH CULTURE IND
[2016-08-28 18:13] LABS: ALT (GPT) 86 U/L (9-42); ANION GAP 7 MEQ/L (5-15); AST (GOT) 88 U/L (16-38); BICARBONATE 26.9 MEQ/L (21.0-32.0); BLOOD UREA NITROGEN 9 MG/DL (7-18); CHLORIDE 102 MEQ/L (98-107); GLOMERULAR FILTRATION RATE 72 ML/MIN (>89); POTASSIUM 3.7 MEQ/L (3.5-5.1); SODIUM (NA) 136 MEQ/L (136-145)
[2016-08-28 18:14] LABS: ALKALINE PHOSPHATASE 97 U/L (45-117); TOTAL BILIRUBIN ADULT 0.6 MG/DL (0.2-1.0)
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
[2016-08-28] MEDS ORDERED: NAPR500 PO (19:29)
[2016-08-28] MEDS ORDERED: VOSO10A RIGHT EAR (19:29)
--- NOTE | 2016-08-28 19:29 | PD ---
Data Data Last Documented VS Vital Signs Date Time Temp Pulse Resp B/P Pulse Ox O2 Delivery O2 Flow Rate FiO2 08/28/16 14:19 99.2 102 20 125/75 99 Room Air Orders Complete Blood Count With Diff (08/28/16 17:09) Comprehensive Metabolic Panel (08/28/16 17:09) Lactic Acid Sepsis Protocol (08/28/16 17:09) Urinalysis - C+S If Indicated (08/28/16 17:09) Blood Culture (08/28/16 17:09) Chest, Single Ap (08/28/16 17:09) Iv Access Insert/Monitor (08/28/16 17:09) Ed Urine Pregnancytest Poc (08/28/16 17:09) Ct Brain W/O Iv Contrast(Rout) (08/28/16 ) Urine Culture (08/28/16 17:25) Labs Laboratory Tests Test 08/28/16 17:25 White Blood Count 4.0 TH/MM3 Red Blood Count 5.02 MIL/MM3 Hemoglobin 14.4 GM/DL Hematocrit 44.5 % Mean Corpuscular Volume 88.7 FL Mean Corpuscular Hemoglobin 28.8 PG Mean Corpuscular Hemoglobin 32.5 % Concent Red Cell Distribution Width 14.6 % Platelet Count 155 TH/MM3 Mean Platelet Volume 8.3 FL Neutrophils (%) (Auto) 60.9 % Lymphocytes (%) (Auto) 30.3 % Monocytes (%) (Auto) 8.2 % Eosinophils (%) (Auto) 0.0 % Basophils (%) (Auto) 0.6 % Neutrophils # (Auto) 2.5 TH/MM3 Lymphocytes # (Auto) 1.2 TH/MM3 Monocytes # (Auto) 0.3 TH/MM3 Eosinophils # (Auto) 0.0 TH/MM3 Basophils # (Auto) 0.0 TH/MM3 CBC Comment DIFF FINAL Differential Comment Urine Color YELLOW Urine Turbidity CLEAR Urine pH 6.0 Urine Specific [place] 1.025 Urine Protein 30 mg/dL Urine Glucose (UA) NEG mg/dL Urine Ketones NEG mg/dL Urine Occult Blood NEG Urine Nitrite NEG Urine Bilirubin NEG Urine Urobilinogen 2.0 MG/DL Urine Leukocyte Esterase SMALL Urine RBC 2 /hpf Urine WBC 15 /hpf Urine Squamous Epithelial 1 /hpf Cells Urine Mucus FEW /lpf Microscopic Urinalysis Comment CATH-CULTURE IND Sodium Level 136 MEQ/L Potassium Level 3.7 MEQ/L Chloride Level 102 MEQ/L Carbon Dioxide Level 26.9 MEQ/L Anion Gap 7 MEQ/L Blood Urea Nitrogen 9 MG/DL Creatinine 0.99 MG/DL Estimat Glomerular Filtration 72 ML/MIN Rate Random Glucose 72 MG/DL Lactic Acid Level 1.3 mmol/L Calcium Level 9.1 MG/DL Total Bilirubin 0.6 MG/DL Aspartate Amino Transf 88 U/L (AST/SGOT) Alanine Aminotransferase 86 U/L (ALT/SGPT) Alkaline Phosphatase 97 U/L Total Protein 8.2 GM/DL Albumin 3.8 GM/DL [facility] Supervised Visit with OCTAVIO: Yes Narrative Course Is an otherwise healthy 21 year-old woman with a history of IV drug use presents with feeling sick headaches blood coming from her years myalgias and flulike symptoms. Last use a couple days ago. Labs are unremarkable with the exception of some elevated liver enzymes. She has a small amount of pyuria. She is overall well. In her ear she has obvious bleeding from what appears to be the ear canal itself. TMs completely normal. She admits to using Q-tips and then a chau pin in her ear. Recommend that she not do that. Recommended she not use IV drugs. We'll await blood cultures and urine culture, treat if positive, otherwise outpatient follow-up. Diagnosis Primary Impression: Ear pain Additional Impression: Headache Additional Instruction: Use Naprosyn as needed for headache or ear pain. Do not put anything in your ear other than the drops as prescribed. Do not use Q-tips or body pains, etc. Follow-up with a primary physician in one to 2 weeks if you're not feel completely well. Do not use IV drugs. Med/Other Pt SpecificInfo: Prescription(s) given Scripts Acetic Acid-Hydrocortisone Otic Drops (Acetasol Hc Otic Drops)2-1% Drops5 Drop RIGHT EAR Q6HR #1 BOTTLE Ref 0 Insert saturated wick; keep moist 24 hrs by adding 3-5 drops q4-6 hrs; remove wick after 24 hrs & instill 5 drops 3-4 times/day thereafter. Prov:Emile Riddle MD 08/28/16 Naproxen (Naprosyn)500 Mg Bcc923 Mg PO BID PRN (PAIN SCALE 1 TO 10) #20 TAB Prov:Emile Riddle MD 08/28/16 Disposition: 01 DISCHARGE HOME Condition: Stable Emile Riddle MD Aug 28, 2016 19:29
[2016-08-28 19:41] VITALS: BP 118/74
== END 2016-08-28 19:44 | disposition home or self-care (01) ==
LOC: NEPD 14:17
DX: H92.03 Otalgia, bilateral (principal); R51 Headache; R74.8 Abnormal levels of other serum enzymes; N39.0 Urinary tract infection, site not specified; B96.20 Unspecified Escherichia coli [E. coli] as the cause of diseases classified elsewhere; M79.1 Myalgia; R53.83 Other fatigue; Z86.59 Personal history of other mental and behavioral disorders; Z87.2 Personal history of diseases of the skin and subcutaneous tissue
CPT/HCPCS: 70450; 71010; 80053; 81001; 83605; 84703; 85025; 87040; 87077; 87086; 87186

== ENCOUNTER 2017-10-28 14:16 | Inpatient (IN) ==
[2017-10-28] MEDS ORDERED: Morphine Inj 4 MG/ML Vial IV.PUSH ONE (14:29)
[2017-10-28] MEDS ORDERED: Diphtheria/Tetanus/Pertussis Vaccine Inj 0.5 ML Syringe IM ONE (14:29)
[2017-10-28] MEDS ORDERED: Sod Chloride 0.9% Inj 1,000 ML IV.SIG SCH (14:30)
[2017-10-28] MEDS ORDERED: Sod Chloride 0.9% Inj 1,000 ML IV.CONT SCH ×2 (14:30→21:30)
--- NOTE | 2017-10-28 14:46 | ED ---
HPI General Chief Complaint: Wound/Laceration Stated Complaint: Laceration Time Seen by Provider: 10/28/17 14:29 Source: patient Mode of arrival: ambulatory Limitations: no limitations History of Present Illness HPI narrative: Patient is a 22-year-old female who presents the emergency room for evaluation of laceration to her back. She reports that she fell backwards today and landed on glass which caused a laceration to her back. Reports that tetanus is not up to date. Patient with no other complaints at this time. Related Data Home Medications Medication Instructions Recorded Confirmed No Known Home Medications 10/28/17 10/28/17 Allergies Allergy/AdvReac Type Severity Reaction Status Date / Time No Known Allergies Allergy Verified 10/28/17 18:52 Review of Systems ROS: all other systems reviewed are negative [facility] Medical History Medical History Hepatitis B (Acute) Surgical History Surgical History Status post left foot surgery (Acute) Social History Social History Substance History: Active Abuse Smoking Status: Smoker, status unknown Tobacco Type: Cigarettes How Often Do You Have a Drink Containing Alcohol: 2 to 3 times a week Substance Abuse Detail Marijuana: Substance Use Status: Active Immunization History Tetanus Immunization: Unsure Hx Influenza Vaccine This Season: No Exam Narrative Exam Narrative: GENERAL: Moderate distress SKIN: Focused skin assessment warm/dry. Patient with 3cm laceration to right mid back HEAD: Atraumatic. Normocephalic. EYES: Pupils equal and round. No scleral icterus. No injection or drainage. ENT: No nasal bleeding or discharge. Mucous membranes pink and moist. NECK: Trachea midline. No JVD. CARDIOVASCULAR: Regular rate and rhythm. No murmur appreciated. RESPIRATORY: No accessory muscle use. Clear to auscultation. Breath sounds equal bilaterally. GASTROINTESTINAL: Abdomen soft, non-tender, nondistended. Hepatic and splenic margins not palpable. MUSCULOSKELETAL: No obvious deformities. No clubbing. No cyanosis. No edema. NEUROLOGICAL: Awake and alert. No obvious cranial nerve deficits. Motor grossly within normal limits. Normal speech. PSYCHIATRIC: Appropriate mood and affect; insight and judgment normal. Procedures Laceration Laceration 1: Site: back Side (If applicable): right Size (cm): 3 Description: linear Depth: simple, single layer Anesthetic used: lidocaine 1% Anesthesia technique:: local infiltration Amount (mL): 5 Skin layer closed with: lida Number of sutures:: 7 Course Initial Documented Vital Signs Temperature 98.1 F 10/28/17 14:23 Pulse Rate 116 H 10/28/17 14:23 Respiratory Rate 22 10/28/17 14:23 Blood Pressure 131/60 10/28/17 14:23 Pulse Oximetry 100 10/28/17 14:23 Last Documented Vital Signs Temperature 98.1 F 10/28/17 14:23 Pulse Rate 64 10/28/17 19:12 Respiratory Rate 16 10/28/17 19:12 Blood Pressure 122/56 L 10/28/17 19:12 Pulse Oximetry 100 10/28/17 19:12 Medical Decision Making MDM Narrative Medical decision making narrative: During the course of the patients emergency department visit, the patients history, examination, and differential diagnosis were reviewed with the patient. The patient was placed on a clinical research monitor with oximetry and frequent blood pressure monitoring. The patient had an IV access obtained and blood work sent for analysis. The patient was initially provided tetanus booster, IV morphine for pain as well as IVF Hematocrit 14.5, hematocrit 42.2, INR 1.1 CT of the chest concerning for liver laceration of the left lobe of the liver CT of the abdomen and pelvis shows that the liver a homogenous density without space occupying lesion, there are a few tiny gallstones, no biliary trat obstruction. Small 1.6cm ovarian cyst. Otherwise unremarkable ct Call was made to Dr. Coates to review case as there is concerns for possible liver laceration seen on ct of chest but not ct of abdomen and pelvis I did review case with Dr. Brasher with radiology who does not think that patient has a liver laceration, I am unable to talk to Dr. Basilio who read the CT of the chest and saw an appearance of liver laceration. Patient's UDS is positive for cocaine, cannabis, benzos, amphetamines, -she has an unreliable exam. Plan to obs to Dr. Coates's service for serial abdominal exam's. Medical Screen Exam Complete: Yes Emergency Medical Condition: Yes Differential Diagnosis Differential Diagnosis: laceration Medical Records Medical records reviewed: Yes I reviewed the patient's medical records. Lab Data Lab results reviewed: Yes I reviewed the patient's lab results. Result diagrams: 10/28/17 14:45 10/28/17 14:45 POC Results POC Urine Results Negative Lab Results 10/28/17 10/28/17 10/28/17 Range/Units 14:45 14:45 14:45 WBC 10.7 (4.0-11.0) th/mm3 RBC 4.56 (4.00-5.30) mil/mm3 Hgb 14.5 (11.6-15.3) gm/dL Hct 42.2 (35.0-46.0) % MCV 92.5 (80.0-100.0) fL MCH 31.7 (27.0-34.0) pg MCHC 34.2 (32.0-36.0) % RDW 13.5 (11.6-17.2) % Plt Count 260 (150-450) th/mm3 MPV 7.8 (7.0-11.0) fL Neut % (Auto) 70.0 (16.0-70.0) % Lymph % (Auto) 17.6 (9.0-44.0) % [place]ion % (Auto) 12.1 H (0.0-8.0) % Eos % (Auto) 0.0 (0.0-4.0) % Baso % (Auto) 0.3 (0.0-2.0) % Neut # (Auto) 7.5 (1.8-7.7) th/mm3 Lymph # (Auto) 1.9 (1.0-4.8) th/mm3 [place] # (Auto) 1.3 H (0.0-0.9) th/mm3 Eos # (Auto) 0.0 (0.0-0.4) th/mm3 Baso # (Auto) 0.0 (0.0-0.2) th/mm3 WBC Differential . Differential Comment Auto diff final PT 10.9 (9.8-11.6) sec INR 1.1 Ratio APTT 29.2 (24.3-30.1) sec Sodium 142 (136-145) meq/L Potassium 3.6 (3.5-5.1) meq/L Chloride 106 (98-107) meq/L Carbon Dioxide 25.0 (21.0-32.0) meq/L Anion Gap 11 (5-15) meq/L BUN 16 (7-18) mg/dL Creatinine 1.15 H (0.50-1.00) mg/dL Estimated GFR 60 L (>89) mL/min Random Glucose 74 (74-106) mg/dL Calcium 9.5 (8.5-10.1) mg/dL Beta HCG, Quant Less than 1 (0-5) mIU/mL Urine Opiates Screen (Neg) Ur Barbiturates Screen (Neg) Ur Amphetamines Screen (Neg) U Benzodiazepines Scrn (Neg) Urine Cocaine Screen (Neg) U Cannabinoids Screen (Neg) Blood Type Blood Type Recheck Antibody Screen 10/28/17 10/28/17 Range/Units 14:45 16:00 WBC (4.0-11.0) th/mm3 RBC (4.00-5.30) mil/mm3 Hgb (11.6-15.3) gm/dL Hct (35.0-46.0) % MCV (80.0-100.0) fL MCH (27.0-34.0) pg MCHC (32.0-36.0) % RDW (11.6-17.2) % Plt Count (150-450) th/mm3 MPV (7.0-11.0) fL Neut % (Auto) (16.0-70.0) % Lymph % (Auto) (9.0-44.0) % [place] % (Auto) (0.0-8.0) % Eos % (Auto) (0.0-4.0) % Baso % (Auto) (0.0-2.0) % Neut # (Auto) (1.8-7.7) th/mm3 Lymph # (Auto) (1.0-4.8) th/mm3 [place] # (Auto) (0.0-0.9) th/mm3 Eos # (Auto) (0.0-0.4) th/mm3 Baso # (Auto) (0.0-0.2) th/mm3 WBC Differential Differential Comment PT (9.8-11.6) sec INR Ratio APTT (24.3-30.1) sec Sodium (136-145) meq/L Potassium (3.5-5.1) meq/L Chloride (98-107) meq/L Carbon Dioxide (21.0-32.0) meq/L Anion Gap (5-15) meq/L BUN (7-18) mg/dL Creatinine (0.50-1.00) mg/dL Estimated GFR (>89) mL/min Random Glucose (74-106) mg/dL Calcium (8.5-10.1) mg/dL Beta HCG, Quant (0-5) mIU/mL Urine Opiates Screen Neg (Neg) Ur Barbiturates Screen Neg (Neg) Ur Amphetamines Screen Pos H (Neg) U Benzodiazepines Scrn Pos H (Neg) Urine Cocaine Screen Pos H (Neg) U Cannabinoids Screen Pos H (Neg) Blood Type O Positive Blood Type Recheck Required Antibody Screen Negative Imaging Data Attestation: I personally reviewed and interpreted this imaging study as follows : Radiologist's impression: Abdomen/Pelvis CT 10/28/17 14:29 CONCLUSION: 1. A few tiny gallstones in the gallbladder. No biliary tract obstruction. 2. Small 1.6 cm right ovarian cyst. Trace of fluid in the cul-de-sac. 3. Otherwise, unremarkable and stable exam compared to the prior study. Chest CT 10/28/17 14:29 CONCLUSION: 1. Appearance of a liver laceration within the left lobe of the liver. The thorax is unremarkable. Chest X-Ray 10/28/17 14:29 CONCLUSION: No acute cardiopulmonary disease Discharge Plan Discharge Disposition Patient Disposition: 30 Still Patient Discharge Condition Condition: Stable Discharge Details Diagnosis: Liver laceration Physicians Team ED Provider: Sarah Downing Primary Care Provider: Primary Care Johni,Florencia Attending Provider: Aureliano Coates Status ED Status: Admitted Observation Patient
[2017-10-28 15:20] LABS: Baso % (Auto) 0.3 % (0.0-2.0); Hematocrit 42.2 % (35.0-46.0); Hemoglobin 14.5 gm/dL (11.6-15.3); Lymph # (Auto) 1.9 th/mm3 (1.0-4.8); Lymph % (Auto) 17.6 % (9.0-44.0); Mean Corpuscular HGB Conc 34.2 % (32.0-36.0); Mean Corpuscular Hemoglobin 31.7 pg (27.0-34.0); Mean Corpuscular Volume 92.5 fL (80.0-100.0); Mean Platelet Volume 7.8 fL (7.0-11.0); Mono # (Auto) 1.3 th/mm3 (0.0-0.9); Mono % (Auto) 12.1 % (0.0-8.0); Neut # (Auto) 7.5 th/mm3 (1.8-7.7); Platelet Count 260 th/mm3 (150-450); Red Blood Count 4.56 mil/mm3 (4.00-5.30); Red Cell Distribution Width 13.5 % (11.6-17.2); White Blood Count 10.7 th/mm3 (4.0-11.0)
--- NOTE | 2017-10-28 15:20 | XR ---
EXAM DATE: 10/28/2017 3:07 PM EDT AGE/SEX: 22 years / Female INDICATIONS: Laceration on upper back, short of breath CLINICAL DATA: This is the patient's initial encounter. Patient reports that signs and symptoms have been present for 1 day and indicates a pain score of 0/10. MEDICAL/SURGICAL HISTORY: None. Non-responsive. [place] [facility] [place]. . FINDINGS: A single AP view of the chest demonstrates the lungs to be symmetrically aerated without evidence of mass, infiltrate or effusion. The cardiomediastinal contours are unremarkable. Osseous structures a re intact. CONCLUSION: No acute cardiopulmonary disease Electronically signed by: Rj French MD 10/28/2017 3:19 PM EDT
[2017-10-28 15:23] LABS: Activated Partial Thrombo Time 29.2 sec (24.3-30.1); INR 1.1 Ratio; Prothrombin Time 10.9 sec (9.8-11.6)
[2017-10-28 15:54] LABS: Anion Gap 11 meq/L (5-15); Blood Urea Nitrogen 16 mg/dL (7-18); Calcium 9.5 mg/dL (8.5-10.1); Chloride 106 meq/L (98-107); Glomerular Filtration Rate 60 mL/min (>89); Glucose,Random 74 mg/dL (74-106); Potassium 3.6 meq/L (3.5-5.1); Sodium 142 meq/L (136-145)
[2017-10-28 16:51] LABS: Amphetamine Screen,Urine Pos (Neg); Barbiturate Screen,Urine Neg (Neg); Cannabinoid Screen,Urine Pos (Neg); Cocaine Screen,Urine Pos (Neg)
[2017-10-28 17:01] LABS: Opiate Screen,Urine Neg (Neg)
--- NOTE | 2017-10-28 17:07 | CT ---
EXAM DATE: 10/28/2017 5:02 PM EDT AGE/SEX: 22 years / Female INDICATIONS: Fall on glass table . CLINICAL DATA: This is the patient's initial encounter. Patient reports that signs and symptoms have been present for 1 day and indicates a pain score of 0/10. MEDICAL/SURGICAL HISTORY: Hepatitis B. None. RADIATION DOSE: 6.87 CTDI (mGy) ; Combined studies COMPARISON: [facility] – [place], [place] ABDOMEN & PELVIS W CONTRAST, 10/28/2017. . No external comparison. TECHNIQUE: Multiple contiguous axial images were obtained through the chest during bolus infusion of 100 ml Omnipaque 350 (iohexol) nonionic water-soluble contrast as a cumulative dose for multiple ex ams. Images were obtained in suspended respiration using multiple row detector helical technique. Using automated exposure control and adjustment of the mA and/or kV according to patient size, radiat ion dose was kept as low as reasonably achievable to obtain optimal diagnostic quality images. DICOM format image data is available electronically for review and comparison. FINDINGS: Lungs: The lungs are symmetrically aerated. No infiltrates or nodular densities are seen. Mediastinum: There is good visualization of the great vessels of the middle mediastinum. No evidenc e of mediastinal or hilar adenopathy/mass. Pleurae: No evidence of focal thickening or pleural effusion. Axillae: Unremarkable. Bony Structures: Unremarkable. Miscellaneous: The imaged portion of the abdomen is significant for an irregular linear oriented are a of decreased attenuation involving the left lobe of the liver concerning for a liver laceration. CONCLUSION: 1. Appearance of a liver laceration within the left lobe of the liver. The thorax is unremarkable. Electronically signed by: Janeen Basilio MD 10/28/2017 5:05 PM EDT
--- NOTE | 2017-10-28 17:08 | CT ---
EXAM DATE: 10/28/2017 5:03 PM EDT AGE/SEX: 22 years / Female INDICATIONS: Fall onto glass table . Laceration to middle of back. CLINICAL DATA: This is the patient's initial encounter. Patient reports that signs and symptoms have been present for 1 day and indicates a pain score of 0/10. MEDICAL/SURGICAL HISTORY: Hepatitis B. None. ORAL CONTRAST: No oral contrast ingested. RADIATION DOSE: 6.87 CTDI (mGy) COMPARISON: [facility] – [place], CT ABDOMEN & PELVIS W CONTRAST, 07/26/2016. . No external comparison. TECHNIQUE: Multiple contiguous axial images were obtained through the abdomen and pelvis following b olus infusion of 100 ml Omnipaque 350 (iohexol) nonionic water-soluble contrast as a cumulative dos e for multiple exams. No oral contrast ingested. Using automated exposure control and adjustment of the mA and/or kV according to patient size, radiation dose was kept as low as reasonably achievable t o obtain optimal diagnostic quality images. DICOM format image data is available electronically for review and comparison. FINDINGS: Lower Lungs: The visualized lower lungs are clear. Liver: The liver has a homogeneous density without space-occupying lesion. There is no dilation of th e biliary tree. There appear to be a few tiny stones in the gallbladder. No surrounding inflammatory changes. Spleen: Homogeneous density without enlargement. Pancreas: Unremarkable without mass or calcification. Kidneys: Normal in size and shape. No evidence of mass or hydronephrosis. Adrenal Glands: Unremarkable. Aorta: The aorta and proximal iliac vessels are grossly unremarkable without aneurysmal dilation. Bowel/Mesentery: The bowel loops are grossly unremarkable. The cecum and sigmoid colon have a normal configuration. Abdominal Wall: Intact. Retroperitoneum: No evidence of adenopathy in the retrocrural, para-aortic, or deep pelvic regions. Bladder: Contours are smooth. Reproductive Organs: Small right ovarian cyst measuring 1.6 cm. There is a trace of fluid in the cul -de-sac. The uterus is within normal limits. Inguinal: The inguinal region is unremarkable without evidence of adenopathy. Bony Structures: Unremarkable. No radiopaque foreign bodies are seen in the soft tissues of the back . No significant changes compared to the prior study. CONCLUSION: 1. A few tiny gallstones in the gallbladder. No biliary tract obstruction. 2. Small 1.6 cm right ovarian cyst. Trace of fluid in the cul-de-sac. 3. Otherwise, unremarkable and stable exam compared to the prior study. Electronically signed by: John Paul Pierce MD 10/28/2017 5:07 PM EDT
[2017-10-28 19:14] VITALS: O2SAT 100
[2017-10-28] MEDS ORDERED: Morphine Inj 4 MG/ML Vial IV.PUSH PRN (21:26)
[2017-10-28 21:41] VITALS: BP 109/55; PULSE 81; RESP 18; TEMP 97.6
[2017-10-28] MEDS ORDERED: Pantoprazole Inj 40 MG Vial IV.PUSH SCH (22:00)
[2017-10-29] MEDS ORDERED: Multivitamin Inj 10 ML, Thiamine Inj 100 MG, Folic Acid Inj 1 MG in Sodium Chlor 0.9% I... IV.SIG SCH ×4
[2017-10-29] MEDS ORDERED: Chlorhexidine Gluconate 2% 1 Pack (2 Cloths) TOPICAL PRN (04:00)
[2017-10-29] MEDS ORDERED: Chlorhexidine Gluconate 2% 1 Pack (2 Cloths) TOPICAL SCH (04:00)
[2017-10-29] MEDS ORDERED: Docusate Sodium 100 MG Capsule PO SCH (09:00)
== END 2017-10-28 22:00 | disposition left against medical advice (07) ==
LOC: NEDA 14:16 → NEPE 14:16 → N07 21:05
PROVIDERS: ADMIT Surgery; ATTEND Surgery